=== PATIENT | male | born 1950 | race Caucasian/White ===

== ENCOUNTER 2019-07-05 15:14 | Emergency (ER) | payer OTHER ==
[~2019-07-05] VITALS: Ht 170.2 cm; Wt 104.3 kg
[~2019-07-05 15:14] MED LIST: ASPI81CH; ATOR80 PO; BUSP5 PO; CLOP75 PO; DIVA500EC; LISI5 PO; PARO30 PO; POWDERLAX238 GM PO; SIMV10; Vitamin D2000 UNIT PO; ZOLP10 PO
[2019-07-05 15:46] LABS: BASOPHILS ABSOLUTE AUTO 0.04 K/mm3 (0.00-0.23); BASOPHILS PERCENT AUTO 0 % (0-2); EOSINOPHILS ABSOLUTE AUTO 0.06 K/mm3 (0.00-0.68); EOSINOPHILS PERCENT AUTO 1 % (0-6); Hemoglobin 16.5 g/dL (13.5-17.5); IMMATURE GRAN ABSOLUTE AUTO 0.05 K/mm3 (0.00-0.10); IMMATURE GRAN PERCENT AUTO 0 % (0-1); LYMPHOCYTES ABSOLUTE AUTO 0.87 K/mm3 (0.84-5.20); LYMPHOCYTES PERCENT AUTO 8 % (21-46); MONOCYTES ABSOLUTE AUTO 0.65 K/mm3 (0.16-1.47); MONOCYTES PERCENT AUTO 6 % (4-13); Mean Corpuscular HGB 29.8 pg (26.0-34.0); Mean Corpuscular HGB Conc 32.4 g/dL (31.5-36.5); Mean Corpuscular Volume 92 fL (80-100); NEUTROPHILS ABSOLUTE AUTO 9.97 K/mm3 (1.96-9.15); NEUTROPHILS PERCENT AUTO 86 % (41-73); Platelet Count 255 K/mm3 (150-400); RDW Standard Deviation 44.4 fL (35.1-46.3); Red Blood Cell Count 5.53 M/mm3 (4.30-5.90); White Blood Cell Count 11.64 K/mm3 (4.00-11.30)
[2019-07-05 16:05] LABS: Alanine Aminotransfer (ALT/SGP 25 U/L (12-78); Albumin, Blood 3.9 g/dL (3.4-5.0); Albumin/Globulin Ratio 1.1 (0.8-1.8); Alk Phos 167 U/L (50-136); Anion Gap 7 mmol/L (6-16); Aspartate Aminotrans (AST/SGOT 19 U/L (12-37); Bilirubin, Total 0.7 mg/dL (0.1-1.0); Blood Urea Nitrogen 15 mg/dL (8-24); Bun/Creatinine Ratio 18.8 (12.0-20.0); CO2, Blood 25 mmol/L (21-32); Calcium, Blood 8.9 mg/dL (8.5-10.1); Chloride, Blood 108 mmol/L (98-108); Globulin, Blood 3.6 g/dL (2.2-4.0); Glomerular Filtration Rate >60 (60-); Glucose, Blood 114 mg/dL (70-99); Sodium, Blood 140 mmol/L (136-145); Total Protein, Blood 7.5 g/dL (6.4-8.2); Troponin I <0.015 ng/mL (0.000-0.040)
[2019-07-05] MEDS ORDERED: PEPCID40 MG PO (17:45)
== END 2019-07-05 18:00 | disposition home or self-care (01) ==
LOC: ER 15:14
PROVIDERS: Physician Assistant
DX: R07.9 Chest pain, unspecified (principal); I10 Essential (primary) hypertension; F32.9 Major depressive disorder, single episode, unspecified; Z87.891 Personal history of nicotine dependence
CPT/HCPCS: 36415; 71046; 76705; 80053; 84484; 85025; 93005; 93010; 96374; 96375; 99285-25; J1170; J2405

== ENCOUNTER 2019-07-05 23:10 | Inpatient (IN) | payer OTHER, MEDICARE ==
[~2019-07-05] VITALS: Ht 170.2 cm; Wt 105.4 kg
[~2019-07-05 23:10] MED LIST changes: +ATOR20 PO; -ATOR80 PO; -LISI5 PO; +PEPCID40 MG PO; +Prinivil10 MG PO; -ZOLP10 PO; +ZOLP5 PO
[2019-07-06 00:44] LABS: BASOPHILS ABSOLUTE AUTO 0.03 K/mm3 (0.00-0.23); BASOPHILS PERCENT AUTO 0 % (0-2); EOSINOPHILS ABSOLUTE AUTO 0.03 K/mm3 (0.00-0.68); EOSINOPHILS PERCENT AUTO 0 % (0-6); Hemoglobin 15.4 g/dL (13.5-17.5); IMMATURE GRAN ABSOLUTE AUTO 0.11 K/mm3 (0.00-0.10); IMMATURE GRAN PERCENT AUTO 1 % (0-1); LYMPHOCYTES ABSOLUTE AUTO 0.76 K/mm3 (0.84-5.20); LYMPHOCYTES PERCENT AUTO 4 % (21-46); MONOCYTES PERCENT AUTO 5 % (4-13); Mean Corpuscular HGB Conc 32.1 g/dL (31.5-36.5); Mean Corpuscular Volume 93 fL (80-100); Mean Platelet Volume 10.3 fL (9.1-12.4); NEUTROPHILS ABSOLUTE AUTO 18.21 K/mm3 (1.96-9.15); NEUTROPHILS PERCENT AUTO 90 % (41-73); Platelet Count 294 K/mm3 (150-400); RDW Coefficient Variation 13.2 % (11.7-14.2); RDW Standard Deviation 45.5 fL (35.1-46.3); Red Blood Cell Count 5.14 M/mm3 (4.30-5.90); White Blood Cell Count 20.24 K/mm3 (4.00-11.30)
[2019-07-06 00:52] LABS: Alanine Aminotransfer (ALT/SGP 21 U/L (12-78); Albumin, Blood 3.4 g/dL (3.4-5.0); Alk Phos 164 U/L (50-136); Anion Gap 7 mmol/L (6-16); Aspartate Aminotrans (AST/SGOT 13 U/L (12-37); Blood Urea Nitrogen 16 mg/dL (8-24); Bun/Creatinine Ratio 17.4 (12.0-20.0); CO2, Blood 27 mmol/L (21-32); Calcium, Blood 8.7 mg/dL (8.5-10.1); Chloride, Blood 107 mmol/L (98-108); Creatinine, Blood 0.92 mg/dL (0.60-1.20); Globulin, Blood 3.4 g/dL (2.2-4.0); Glomerular Filtration Rate >60 (60-); Glucose, Blood 119 mg/dL (70-99); Potassium, Blood 3.9 mmol/L (3.5-5.5); Sodium, Blood 141 mmol/L (136-145); Total Protein, Blood 6.8 g/dL (6.4-8.2); Troponin I <0.015 ng/mL (0.000-0.040)
[2019-07-06 02:08] LABS: CHOL/HDL RATIO 2.7; Cholesterol 111 mg/dL (50-200); HDL Cholesterol 41 mg/dL (>39); LDL/HDL RATIO 1.4; Low Density Lipoprotein Chol 57 mg/dL (0-110); Triglycerides 66 mg/dL (30-160); Very Low Density Lipoprot Chol 13 mg/dL (6-32)
--- NOTE | 2019-07-06 03:00 | NUR ---
0300 Patient arrived to the floor. Admission started. Dr Cortes called and ordered STAt CT-A with contrast. Patient complaining of pain 8/10 in his abdomen. BP is elevated at 168/79. Patient states he is nauseated. Gave Zofran, hydralizine and Fentanyl per emar. took patient to CT2 for procedure. 0402: returned from CT to room. telemetry placed. LR infusing per emar. Admission Assessments completed. 0530: Checked in with Dr Hernandez to make sure she had gotten imaging results. 0700: reported off to GRAY Bird
[2019-07-06 04:47] LABS: International Normalized Ratio 1.04; Prothrombin Time Results 11.1 Sec (9.7-11.5)
[2019-07-06 06:46] LABS: Hematocrit 44.6 % (37.0-53.0); Hemoglobin 14.3 g/dL (13.5-17.5)
[2019-07-06 12:46] LABS: Hematocrit 44.3 % (37.0-53.0); Hemoglobin 14.3 g/dL (13.5-17.5)
[2019-07-06 16:35] LABS: Hematocrit 42.4 % (37.0-53.0); Hemoglobin 13.5 g/dL (13.5-17.5)
--- NOTE | 2019-07-06 17:42 | NUR ---
PATIENT IS ALERT AND ORIENTED AND COOPERATIVE WITH CARE. NO REPORTS OF NAUSEA TODAY. LR RUNNING AT 75 ML/HR. A NEW IV WAS PLACED IN HIS RIGHT ARM. PATIENT COMPLAINS OF ABDOMINAL PAIN, TREATED PER EMAR. PATIENT HAS BEEN NPO EXCEPT FOR ICE CHIPS AND MEDS. CONSULT FOR DR. JORGE WAS PLACED THIS MORNING AND DR. JORGE SAW THE PATIENT THIS AFTERNOON. WILL CONTINUE TO MONITOR
[2019-07-06 20:32] LABS: Hematocrit 40.6 % (37.0-53.0)
[2019-07-07 00:24] LABS: Hematocrit 38.9 % (37.0-53.0); Hemoglobin 12.5 g/dL (13.5-17.5)
--- NOTE | 2019-07-07 04:38 | NUR ---
end of shift: patient had increasing pain with "burning sensations" per patient. Spoke to Malia Douglas NP about pain levels, received new order per emar
[2019-07-07 05:18] LABS: Hematocrit 39.5 % (37.0-53.0); Hemoglobin 12.7 g/dL (13.5-17.5)
[2019-07-07 05:39] LABS: Albumin, Blood 3.3 g/dL (3.4-5.0); Anion Gap 5 mmol/L (6-16); Blood Urea Nitrogen 21 mg/dL (8-24); Bun/Creatinine Ratio 25.2 (12.0-20.0); CO2, Blood 28 mmol/L (21-32); Calcium, Blood 8.7 mg/dL (8.5-10.1); Chloride, Blood 105 mmol/L (98-108); Creatinine, Blood 0.83 mg/dL (0.60-1.20); Glomerular Filtration Rate >60 (60-); Glucose, Blood 81 mg/dL (70-99); Phosphorus, Blood 2.9 mg/dL (2.5-4.9); Potassium, Blood 4.1 mmol/L (3.5-5.5); Sodium, Blood 138 mmol/L (136-145)
--- NOTE | 2019-07-07 08:38 | NUR ---
patient had a difficult night. his pain levels were higher and the character of his pain became more a burning pain per patient report. I spoke to the oncall hospitalist and recieved orders in increase the dose of his fentanyl to 100 mcg. but pt dasaturated to low 80s after receiving it. he was placed on O2 at 4L to maintain above 90% amd then backed down to 3L where hs remains.. 0540: spoke to Dr Fleming regarding patient elevated bp; hsi dose of lisinipril was increased to 10 mg and 1st dose given with his 6am meds.
[2019-07-07 08:42] LABS: Hematocrit 39.1 % (37.0-53.0); Hemoglobin 12.4 g/dL (13.5-17.5)
--- NOTE | 2019-07-07 18:56 | NUR ---
PT SEEN BY DR HERCULES TODAY AND DIET CHANGED FROM NPO TO LESLI. PT REQUESTED A REGULAR DIET AND RECIEVED SUCH FOR DINNER. PT TO BE MADE NPO AFTER BREAKFAST TOMORROW FOR AN ANGIO. PT DID REPORT ABD PAIN X1 AT 8/10 AND WAS MEDICATED WITH 50MCG OF IV FENTANYL WITH GOOD EFFECT. PT DENIES DIZZINESS AND BEING LIGHTHEADED, AMBULATES IN ROOM. NO ACUTE CHANGES NOTED THIS SHIFT, WILL CONTINUE TO MONITOR AND REPORT TO ONCOMING RN
[2019-07-08 05:15] LABS: BASOPHILS ABSOLUTE AUTO 0.05 K/mm3 (0.00-0.23); BASOPHILS PERCENT AUTO 0 % (0-2); EOSINOPHILS ABSOLUTE AUTO 0.17 K/mm3 (0.00-0.68); EOSINOPHILS PERCENT AUTO 1 % (0-6); IMMATURE GRAN ABSOLUTE AUTO 0.14 K/mm3 (0.00-0.10); IMMATURE GRAN PERCENT AUTO 1 % (0-1); LYMPHOCYTES ABSOLUTE AUTO 0.89 K/mm3 (0.84-5.20); LYMPHOCYTES PERCENT AUTO 4 % (21-46); MONOCYTES ABSOLUTE AUTO 1.56 K/mm3 (0.16-1.47); MONOCYTES PERCENT AUTO 7 % (4-13); Mean Corpuscular HGB 30.2 pg (26.0-34.0); Mean Corpuscular HGB Conc 31.6 g/dL (31.5-36.5); Mean Platelet Volume 10.9 fL (9.1-12.4); NEUTROPHILS ABSOLUTE AUTO 20.21 K/mm3 (1.96-9.15); NEUTROPHILS PERCENT AUTO 88 % (41-73); Platelet Count 236 K/mm3 (150-400); RDW Coefficient Variation 13.3 % (11.7-14.2); RDW Standard Deviation 47.7 fL (35.1-46.3); Red Blood Cell Count 3.97 M/mm3 (4.30-5.90); White Blood Cell Count 23.02 K/mm3 (4.00-11.30)
[2019-07-08 05:22] LABS: Mean Corpuscular Volume 96 fL (80-100)
[2019-07-08 05:36] LABS: Anion Gap 4 mmol/L (6-16); Blood Urea Nitrogen 14 mg/dL (8-24); Bun/Creatinine Ratio 16.5 (12.0-20.0); CO2, Blood 30 mmol/L (21-32); Calcium, Blood 8.7 mg/dL (8.5-10.1); Chloride, Blood 103 mmol/L (98-108); Creatinine, Blood 0.85 mg/dL (0.60-1.20); Glomerular Filtration Rate >60 (60-); Glucose, Blood 99 mg/dL (70-99); Potassium, Blood 3.8 mmol/L (3.5-5.5); Sodium, Blood 137 mmol/L (136-145)
--- NOTE | 2019-07-08 06:55 | NUR ---
SUMMARY: A/OX4, CALLS APPROPRIATELY AND PLESANT/COOPERATIVE W/CARE. HE'S A SBA OOB D/T SYNCOPE AT HOME. PT REPORTED EATING SOME DURING DAY SHIFT AND TOLERATING IT WELL BUT HAS SINCE HAD ABDO PAIN. PT WAS MEDICATED W/TYLENOL X2 DOSES AND IV FENTANLY PRN FOR TOLERABLE CONTROL. HE DENIES NAUSEA AND ALL OTHER S/S DISTRESS. PT REMAINS IN NSR AT 80'S-90'S BPM. AMBIEN RECIEVED PRN PER PT REQUEST AND HE SLEPT MOST OF NOCTE EXCEPT TO VOID. IVF REMAIN ON HOLD AND PT WILL BE NPO AFTER BREAKFAST FOR ANGIO BY . VSS/AFEBRILE, NO ACUTE CHANGES. WCTM AND REPORT TO DAY RN.
[2019-07-08 16:41] LABS: Source, Urine Clean Catch
[2019-07-08 16:45] LABS: Blood, Urine 1+ (Neg); Glucose Qualitative, Urine Neg (Neg); Ketones, Urine Neg (Neg); Leukocyte Esterase, Urine 1+ (Neg); Nitrite, Urine Neg (Neg); Protein, Urine 2+ (Neg); Urobilinogen, Urine 3+ (Normal)
[2019-07-08 17:00] LABS: Appearance, Urine Clear (Clear); Bilirubin, Urine 1+ (Neg); Color, Urine Amber (P-Yellow)
[2019-07-08 17:03] LABS: Bacteria Few /hpf; Squamous Epithelial Cells Rare /hpf (Few)
--- NOTE | 2019-07-09 04:24 | NUR ---
SHIFT SUMMARY- PT. PLEASANT AND COOPERATIVE WITH CARE. SCHEDULED FOR AN ANGIO TODAY WITH DR. HERCULES. PT. HAS BEEN NPO SINCE MN. MEDICATED FOR PAIN 2X PER PT. REQUEST WITH GOOD RELIEF. PT. SLEPT ON/OFF DURING THE NIGHT, NO APPARENT DISTRESS NOTED. DENIES ANY OTHER NEEDS AT THIS TIME. CALL LIGHT WITHIN REACH AND SIDE RAILS UP X2. WILL CONT TO MONITOR.
[2019-07-09 05:10] LABS: BASOPHILS ABSOLUTE AUTO 0.05 K/mm3 (0.00-0.23); BASOPHILS PERCENT AUTO 0 % (0-2); EOSINOPHILS ABSOLUTE AUTO 0.15 K/mm3 (0.00-0.68); EOSINOPHILS PERCENT AUTO 1 % (0-6); Hematocrit 34.5 % (37.0-53.0); Hemoglobin 11.1 g/dL (13.5-17.5); IMMATURE GRAN ABSOLUTE AUTO 0.17 K/mm3 (0.00-0.10); IMMATURE GRAN PERCENT AUTO 1 % (0-1); LYMPHOCYTES ABSOLUTE AUTO 0.67 K/mm3 (0.84-5.20); LYMPHOCYTES PERCENT AUTO 3 % (21-46); MONOCYTES ABSOLUTE AUTO 1.65 K/mm3 (0.16-1.47); MONOCYTES PERCENT AUTO 9 % (4-13); Mean Corpuscular HGB 30.2 pg (26.0-34.0); Mean Corpuscular HGB Conc 32.2 g/dL (31.5-36.5); Mean Corpuscular Volume 94 fL (80-100); Mean Platelet Volume 10.5 fL (9.1-12.4); NEUTROPHILS PERCENT AUTO 86 % (41-73); Platelet Count 229 K/mm3 (150-400); RDW Coefficient Variation 13.2 % (11.7-14.2); RDW Standard Deviation 45.9 fL (35.1-46.3); Red Blood Cell Count 3.68 M/mm3 (4.30-5.90); White Blood Cell Count 19.49 K/mm3 (4.00-11.30)
[2019-07-09 05:27] LABS: Anion Gap 7 mmol/L (6-16); Blood Urea Nitrogen 15 mg/dL (8-24); Bun/Creatinine Ratio 19.5 (12.0-20.0); CO2, Blood 28 mmol/L (21-32); Calcium, Blood 8.4 mg/dL (8.5-10.1); Chloride, Blood 103 mmol/L (98-108); Creatinine, Blood 0.77 mg/dL (0.60-1.20); Glomerular Filtration Rate >60 (60-); Glucose, Blood 101 mg/dL (70-99); Potassium, Blood 3.8 mmol/L (3.5-5.5); Sodium, Blood 138 mmol/L (136-145)
--- NOTE | 2019-07-09 09:10 | NUR ---
PT TO RECOVERY ROOM POST PROCEDURE. PT IS DROWSY, BUT ROUSABLE; ANSWERING QUESTIONS APPROPRIATELY. PT DENIES PAIN OR DISCOMFORT. MONITOR SR WITH PVC 90'S, B/P 125/62, AFEBRILE, SPO2 95% 2L NC. R GROIN SITE NO SWELLING/HEMATOMA, TEGADERM DRSG INTACT; RLE PULSES: 2+ X 2. PT'S AT BEDSIDE UPDATED.
--- NOTE | 2019-07-09 10:35 | NUR ---
ATTEMPTED TO WEAN O2, PT DESATURATED TO 88% ON RA, REMAINS ON 2L NC 93-95%.
--- NOTE | 2019-07-09 10:45 | NUR ---
REPORT TO GRAY BISWAS HCR.
--- NOTE | 2019-07-09 10:47 | NUR ---
RIGHT GROIN SITE SOFT NON-TENDER WITH NO HEMATOMA AND NO BLEEDING WITH INTACT DRESSING. PT DRINKING WATER. CALL LIGHT IN REACH.
--- NOTE | 2019-07-09 10:58 | NUR ---
Pt received from Leno Hernadez RN, Pt sleeping off and on responds to questions. VSS HOB up 20%. Iv Hep lock left A/C # 18. SR 74 heart rate. Right groin access dry and intact no hematoma or bleeding noted. Drg opsite.
--- NOTE | 2019-07-09 11:48 | NUR ---
Pt up to bedside yosi well. Right groin dry and intact, no bleeding or hematoma noted. Pt off 02 with sats 90-95% Linen changed, pt denies pain. SR no ectopy. Pt drank juice, bannana, given.
--- NOTE | 2019-07-09 12:00 | NUR ---
Sbar to Marizol Medrano RN sbar given pt stable ready to transfer back to his room 311.
--- NOTE | 2019-07-09 12:10 | NUR ---
Pt transported via bed to room 311 with Anders Leach RN Tele box on. Pt stable see previous note on SBAR.
--- NOTE | 2019-07-09 18:29 | NUR ---
SHIFT SUMMARY PT ALERT AND ORIENTED THIS SHIFT. PT COOPERATIVE WITH CARE. PT TO APPLIANCE PARTS COUNTER CLERK FOR PROCEDURE THIS AM. PT RETURNED TO THE FLOOR AROUND NOON. PT DROWSY AFTER PROCEDURE. PT WOKE TO VERBAL STIMULI. INSERTION SITE REMAINS CLEAN WITH NO SIGNS OF HEMATOMA. PT'S IN THE ROOM THIS AM AND AGAIN THIS AFTERNOON. PT CURRENTLY SITTING ON BEDSIDE EATING DINNER.
[2019-07-10 05:35] LABS: BASOPHILS ABSOLUTE AUTO 0.06 K/mm3 (0.00-0.23); BASOPHILS PERCENT AUTO 0 % (0-2); EOSINOPHILS ABSOLUTE AUTO 0.25 K/mm3 (0.00-0.68); EOSINOPHILS PERCENT AUTO 2 % (0-6); Hematocrit 31.8 % (37.0-53.0); Hemoglobin 10.1 g/dL (13.5-17.5); IMMATURE GRAN ABSOLUTE AUTO 0.14 K/mm3 (0.00-0.10); IMMATURE GRAN PERCENT AUTO 1 % (0-1); LYMPHOCYTES ABSOLUTE AUTO 0.86 K/mm3 (0.84-5.20); LYMPHOCYTES PERCENT AUTO 6 % (21-46); MONOCYTES ABSOLUTE AUTO 1.59 K/mm3 (0.16-1.47); MONOCYTES PERCENT AUTO 11 % (4-13); Mean Corpuscular HGB Conc 31.8 g/dL (31.5-36.5); Mean Corpuscular Volume 94 fL (80-100); Mean Platelet Volume 10.5 fL (9.1-12.4); NEUTROPHILS ABSOLUTE AUTO 11.97 K/mm3 (1.96-9.15); NEUTROPHILS PERCENT AUTO 81 % (41-73); Platelet Count 213 K/mm3 (150-400); RDW Coefficient Variation 13.3 % (11.7-14.2); RDW Standard Deviation 46.1 fL (35.1-46.3); Red Blood Cell Count 3.37 M/mm3 (4.30-5.90); White Blood Cell Count 14.87 K/mm3 (4.00-11.30)
[2019-07-10 05:55] LABS: Alanine Aminotransfer (ALT/SGP 36 U/L (12-78); Albumin, Blood 2.1 g/dL (3.4-5.0); Albumin/Globulin Ratio 0.6 (0.8-1.8); Alk Phos 166 U/L (50-136); Anion Gap 5 mmol/L (6-16); Aspartate Aminotrans (AST/SGOT 46 U/L (12-37); Bilirubin, Total 1.4 mg/dL (0.1-1.0); Blood Urea Nitrogen 21 mg/dL (8-24); Bun/Creatinine Ratio 21.7 (12.0-20.0); CO2, Blood 29 mmol/L (21-32); Calcium, Blood 8.1 mg/dL (8.5-10.1); Chloride, Blood 106 mmol/L (98-108); Creatinine, Blood 0.97 mg/dL (0.60-1.20); Globulin, Blood 3.5 g/dL (2.2-4.0); Glomerular Filtration Rate >60 (60-); Glucose, Blood 119 mg/dL (70-99); Magnesium, Blood 2.2 mg/dL (1.6-2.4); Potassium, Blood 3.6 mmol/L (3.5-5.5); Sodium, Blood 140 mmol/L (136-145); Total Protein, Blood 5.6 g/dL (6.4-8.2)
--- NOTE | 2019-07-10 06:41 | NUR ---
SHIFT SUMMARY PT IS A 68 Y/O MALE, ADMITTED FOR ACUTE PANCREATITIS. HE HAD A JEWEL HOLE DRILLER PRECEDURE YESTERDAY TO FIX AN ABD BLEED IN HIS LIVER. SITE REMAINS CLEAN AND INTACT. PT SPIKED A SUDDEN FEVER LAST NIGHT, AT 102.1, THAT ZENAIDA TO 102.8 AFTER HE RECEIVED TYLENOL. AFTER CONSULTING HOSPITALIST DR DAMON, PT WAS GIVEN A SECOND DOSE OF TYLENOL, AND A SECOND SET OF BLOOD CULTURES WERE TAKEN. PT'S TEMPERATURE CAME DOWN TO 100.4 AFTER THE SECOND DOSE. THE PT HAD POSITIVE BLOOD CULTURES FROM THE FIRST SET TAKEN, WITH BRANCHING GRAM + COCCI. PER THE PHARMACIST, CESAR MERAZ, THE ZOSYN THAT THE PT IS CURRENTLY TAKING IS APPROXIMATELY 70% EFFECTIVE. THE HOSPITALIST DR MACIEL WAS INFORMED, NO FURTHER CHANGES IN ORDERS AT THIS TIME. ALL OTHER VITALS STABLE. PT IS ON TELE, WHICH SHOWED NSR IN THE 90S. NO COMPLAINTS OF PAIN, NAUSEA OR SOB. PT WAS ON 2L OF O2 VIA NC THROUGH THE NIGHT. NO OTHER ACUTE CHANGES IN PT CONDITION NOTED. WILL CONTINUE TO MONITOR AND TREAT PER EMAR UNTIL HAND OFF TO DAY SHIFT RN.
--- NOTE | 2019-07-10 13:51 | NUR ---
WATER RESOURCE PROJECT MANAGER NOTIFIED THIS NURSE OF PATIENT FEVER AT ABOUT 1330. THIS NURSE IN TO ASSESS PATIENT IMMEDIATELY. PT FEBRILE AT 1342 AT 103.0. MEDICATED PER EMAR AND ICE PACKS IN ARMPITS. PT AXO TO SELF, PLACE AND FOLLOWING DIRECTIONS THOUGH SLOW TO RESPOND. PT COMPLAINS OF LOWER ABDOMINAL PAIN 6/10 AND CHRONIC PACK PAIN. LR RUNNING PER EMAR AT 75 ML/HR. THIS NURSE TO NOTIFY DR. CHEN AND PTS SPOUSE AFTER REASSESSMENT.
--- NOTE | 2019-07-10 14:01 | NUR ---
DR CHEN NOTIFIED ABOUT CHANGE IN PATIENT STATUS AND TEMPERATURE AT 1355, MEW ORDERS INITIATED. . PT'S SPOUSE CALLED AT 1401 TO UPDATE. NO ANSWER. NO MESSAGE LEFT. WILL ATTEMPT AGAIN LATER.
[2019-07-10 14:33] LABS: BASOPHILS ABSOLUTE AUTO 0.05 K/mm3 (0.00-0.23); BASOPHILS PERCENT AUTO 0 % (0-2); EOSINOPHILS ABSOLUTE AUTO 0.18 K/mm3 (0.00-0.68); EOSINOPHILS PERCENT AUTO 1 % (0-6); Hematocrit 34.9 % (37.0-53.0); Hemoglobin 11.1 g/dL (13.5-17.5); IMMATURE GRAN ABSOLUTE AUTO 0.18 K/mm3 (0.00-0.10); IMMATURE GRAN PERCENT AUTO 1 % (0-1); LYMPHOCYTES ABSOLUTE AUTO 0.43 K/mm3 (0.84-5.20); LYMPHOCYTES PERCENT AUTO 3 % (21-46); MONOCYTES ABSOLUTE AUTO 1.49 K/mm3 (0.16-1.47); MONOCYTES PERCENT AUTO 10 % (4-13); Mean Corpuscular HGB 29.9 pg (26.0-34.0); Mean Corpuscular HGB Conc 31.8 g/dL (31.5-36.5); Mean Corpuscular Volume 94 fL (80-100); Mean Platelet Volume 10.3 fL (9.1-12.4); NEUTROPHILS ABSOLUTE AUTO 13.19 K/mm3 (1.96-9.15); NEUTROPHILS PERCENT AUTO 85 % (41-73); Platelet Count 244 K/mm3 (150-400); RDW Coefficient Variation 13.4 % (11.7-14.2); RDW Standard Deviation 46.2 fL (35.1-46.3); Red Blood Cell Count 3.71 M/mm3 (4.30-5.90); White Blood Cell Count 15.52 K/mm3 (4.00-11.30)
--- NOTE | 2019-07-10 18:48 | NUR ---
SHIFT SUMMARY PT AXO TO SELF, PLACE AND FAMILY THOUGH MAKES OFF THE WALL STATEMENTS AT TIMES. SEE NOTE ABOUT FEVER AT ABOUT 1401. AT 1505 PT TEMP WAS 100.4. PT ALSO IS MORE ALERT AT END OF SHIFT THAN WHEN HE HAD THE FEVER. OTHER VSS AT THIS TIME. 96% ON RA. NEW IV IN LAC INFUSING PER EMAR. BED IN LOW POSITION, CALL LIGHT WITHIN REACH AND BED ALARM ON. CT COMPLETED THIS SHIFT, SEE IMAGING.
[2019-07-11 05:12] LABS: BASOPHILS ABSOLUTE AUTO 0.05 K/mm3 (0.00-0.23); BASOPHILS PERCENT AUTO 0 % (0-2); EOSINOPHILS PERCENT AUTO 1 % (0-6); Hematocrit 34.2 % (37.0-53.0); Hemoglobin 10.8 g/dL (13.5-17.5); IMMATURE GRAN ABSOLUTE AUTO 0.25 K/mm3 (0.00-0.10); IMMATURE GRAN PERCENT AUTO 2 % (0-1); LYMPHOCYTES ABSOLUTE AUTO 0.72 K/mm3 (0.84-5.20); LYMPHOCYTES PERCENT AUTO 4 % (21-46); MONOCYTES ABSOLUTE AUTO 1.67 K/mm3 (0.16-1.47); MONOCYTES PERCENT AUTO 10 % (4-13); Mean Corpuscular HGB 29.3 pg (26.0-34.0); Mean Corpuscular HGB Conc 31.6 g/dL (31.5-36.5); Mean Corpuscular Volume 93 fL (80-100); Mean Platelet Volume 10.1 fL (9.1-12.4); NEUTROPHILS PERCENT AUTO 83 % (41-73); Platelet Count 226 K/mm3 (150-400); RDW Coefficient Variation 13.2 % (11.7-14.2); RDW Standard Deviation 46.1 fL (35.1-46.3); Red Blood Cell Count 3.68 M/mm3 (4.30-5.90); White Blood Cell Count 16.49 K/mm3 (4.00-11.30)
[2019-07-11 05:29] LABS: Anion Gap 5 mmol/L (6-16); Blood Urea Nitrogen 12 mg/dL (8-24); Bun/Creatinine Ratio 14.5 (12.0-20.0); CO2, Blood 28 mmol/L (21-32); Calcium, Blood 8.5 mg/dL (8.5-10.1); Chloride, Blood 106 mmol/L (98-108); Creatinine, Blood 0.83 mg/dL (0.60-1.20); Glomerular Filtration Rate >60 (60-); Glucose, Blood 115 mg/dL (70-99); Magnesium, Blood 2.2 mg/dL (1.6-2.4); Potassium, Blood 3.9 mmol/L (3.5-5.5); Sodium, Blood 139 mmol/L (136-145)
--- NOTE | 2019-07-11 07:40 | NUR ---
SHIFT SUMMARY PT IS A 68 Y/O MALE, ADMITTED WITH ACUTE PANCREATITIS. HE IS A&O X 3 AT BASELINE, THOUGH IS INCREASINGLY CONFUSED WHEN HIS TEMPERATURE IS ELEVATED. PT DID SPIKE A FEVER DURING THE NIGHT AT 101.5, WHICH CAME DOWN TO 98.6 WITH PRN TYLENOL. PT'S BP SLIGHTLY ELEVATED IN THE 160S SYSTOLICALLY. ALL OTHER VITALS STABLE. PT DENIED ANY COMPLAINTS OF PAIN, NAUSEA OR SOB. HE RECEIVED LR @ 75 ML/HR THROUGH THE NIGHT. NO OTHER ACUTE CHANGES IN PT CONDITION NOTED. REPROT GIVEN TO ONCOMING RN.
--- NOTE | 2019-07-11 18:40 | NUR ---
THE PATIENT HAD AN UNEVENTFUL DAY AND IS PLEASANT AND COOPERATIVE WITH THE STAFF. HE CONTINUES ON IV FLUIDS AND IV ABX WITHOUT S/SX OF ADVERSE REACTIONS NOTED OR REPORTED. BP ELEVATED THIS MORNING HOWEVER ALL VITALS WNL THIS AFTERNOON. PATIENT AMBULATING WELL WITH SBA. HE CALLS FOR STAFF ASSIST APPROPRIATELY. WILL CONTINUE TO MONITOR AND PROVIDE CARE NEEDED.
[2019-07-12 05:44] LABS: BASOPHILS ABSOLUTE AUTO 0.09 K/mm3 (0.00-0.23); BASOPHILS PERCENT AUTO 1 % (0-2); EOSINOPHILS PERCENT AUTO 1 % (0-6); Hematocrit 32.8 % (37.0-53.0); Hemoglobin 10.5 g/dL (13.5-17.5); IMMATURE GRAN ABSOLUTE AUTO 0.51 K/mm3 (0.00-0.10); IMMATURE GRAN PERCENT AUTO 3 % (0-1); LYMPHOCYTES ABSOLUTE AUTO 0.74 K/mm3 (0.84-5.20); LYMPHOCYTES PERCENT AUTO 4 % (21-46); MONOCYTES ABSOLUTE AUTO 1.87 K/mm3 (0.16-1.47); MONOCYTES PERCENT AUTO 10 % (4-13); Mean Corpuscular HGB 29.5 pg (26.0-34.0); Mean Corpuscular Volume 92 fL (80-100); Mean Platelet Volume 10.3 fL (9.1-12.4); NEUTROPHILS ABSOLUTE AUTO 15.65 K/mm3 (1.96-9.15); NEUTROPHILS PERCENT AUTO 82 % (41-73); Platelet Count 271 K/mm3 (150-400); RDW Coefficient Variation 13.2 % (11.7-14.2); RDW Standard Deviation 44.8 fL (35.1-46.3); Red Blood Cell Count 3.56 M/mm3 (4.30-5.90); White Blood Cell Count 19.06 K/mm3 (4.00-11.30)
[2019-07-12 06:09] LABS: Anion Gap 7 mmol/L (6-16); Blood Urea Nitrogen 11 mg/dL (8-24); Bun/Creatinine Ratio 13.2 (12.0-20.0); CO2, Blood 26 mmol/L (21-32); Calcium, Blood 8.5 mg/dL (8.5-10.1); Chloride, Blood 104 mmol/L (98-108); Creatinine, Blood 0.84 mg/dL (0.60-1.20); Glomerular Filtration Rate >60 (60-); Glucose, Blood 95 mg/dL (70-99); Potassium, Blood 3.8 mmol/L (3.5-5.5); Sodium, Blood 137 mmol/L (136-145)
--- NOTE | 2019-07-12 07:48 | NUR ---
SHIFT SUMMARY PATIENT ALERT AND ORIENTED. HAD NO COMPLAINTS OF PAIN. BOTH IVS PATENT AND INFUSING. OPSITE DRESSING CLEAN, DRY, AND INTACT. BED IN LOWEST POSITION WITH WHEELS LOCKED. CALL LIGHT WITHIN REACH. REPORT GIVEN TO ONCOMING RN.
[2019-07-12] MEDS ORDERED: CREON DR 12,001 EACH PO (12:59)
--- NOTE | 2019-07-12 13:44 | NUR ---
DISCHARGE INSTRUCTIONS GIVEN TO THE PATIENT. EDUCATIONAL MATERIAL PROVIDED REGARDING PANCREATITS. ALL QUESTIONS ANSWERED. IV's x 2 REMOVED. PATIENT IN HIS ROOM WAITING FOR HIS TO RETURN TO TAKE HIM HOME.
--- NOTE | 2019-07-12 14:03 | NUR ---
PATIENT DISCHARGE HOME AT 1403.
== END 2019-07-12 14:03 | disposition home or self-care (01) | DRG 252 ==
LOC: ER 23:10 → MEDS 07-06 02:44
PROVIDERS: Internal Medicine; Physician Assistant; ADMIT Family Medicine
PROC: 04LY3DZ Occlusion of Lower Artery with Intraluminal Device, Percutaneous Approach (ICD-10-PCS; principal; 2019-07-09)
DX: I72.8 Aneurysm of other specified arteries (principal); K66.1 Hemoperitoneum; R65.11 Systemic inflammatory response syndrome (SIRS) of non-infectious origin with acute organ dysfunction; K85.90 Acute pancreatitis without necrosis or infection, unspecified; J96.21 Acute and chronic respiratory failure with hypoxia; K65.9 Peritonitis, unspecified; J98.11 Atelectasis; D46.9 Myelodysplastic syndrome, unspecified; D63.8 Anemia in other chronic diseases classified elsewhere; I10 Essential (primary) hypertension; I25.10 Atherosclerotic heart disease of native coronary artery without angina pectoris; N40.0 Benign prostatic hyperplasia without lower urinary tract symptoms; F43.10 Post-traumatic stress disorder, unspecified; Z66 Do not resuscitate; Z95.5 Presence of coronary angioplasty implant and graft; Z87.891 Personal history of nicotine dependence; Z79.82 Long term (current) use of aspirin
CPT/HCPCS: 36245; 36246; 36247; 36415; 37244; 71045; 71275; 74174; 74176; 75726; 75774; 80048; 80053; 80061; 80069; 81001; 83605; 83690; 83735; 84145; 84484; 85014; 85018; 85025; 85610; 85730; 86850; 86900; 86901; 87040; 87076; 87077; 87086; 87186; 93005; 93010; 93306; 97110; 97116; 97162; 97165; 97530; 99152; 99153; 99285-25; A9270; A9270-GY; C1760; C1769; C1887; C1894; C9113; J0360; J1644; J1885; J2250; J2405; J2543; J3010; J7030; J7050; J7120; Q9967

== ENCOUNTER 2019-09-08 14:21 | Emergency (ER) | payer OTHER ==
[~2019-09-08] VITALS: Ht 177.8 cm; Wt 104.3 kg
[~2019-09-08 14:21] MED LIST changes: +CREON DR 12,001 EACH PO
[2019-09-08] MEDS ORDERED: PRED10 PO (14:56)
== END 2019-09-08 15:11 | disposition home or self-care (01) ==
LOC: ER 14:21
DX: L30.9 Dermatitis, unspecified (principal); I10 Essential (primary) hypertension; F43.10 Post-traumatic stress disorder, unspecified; Z91.013 Allergy to seafood; Z88.8 Allergy status to other drugs, medicaments and biological substances; Z79.899 Other long term (current) drug therapy; Z87.891 Personal history of nicotine dependence
CPT/HCPCS: 99282

== ENCOUNTER 2020-02-14 14:03 | Emergency (ER) | payer OTHER ==
[~2020-02-14] VITALS: Ht 177.8 cm; Wt 105.7 kg
[~2020-02-14 14:03] MED LIST changes: +PRED10 PO
[2020-02-14 14:49] LABS: BASOPHILS ABSOLUTE AUTO 0.04 K/mm3 (0.00-0.23); BASOPHILS PERCENT AUTO 1 % (0-2); EOSINOPHILS ABSOLUTE AUTO 0.21 K/mm3 (0.00-0.68); EOSINOPHILS PERCENT AUTO 3 % (0-6); Hematocrit 46.2 % (37.0-53.0); Hemoglobin 14.7 g/dL (13.5-17.5); IMMATURE GRAN ABSOLUTE AUTO 0.06 K/mm3 (0.00-0.10); IMMATURE GRAN PERCENT AUTO 1 % (0-1); LYMPHOCYTES ABSOLUTE AUTO 1.19 K/mm3 (0.84-5.20); LYMPHOCYTES PERCENT AUTO 15 % (21-46); MONOCYTES ABSOLUTE AUTO 0.68 K/mm3 (0.16-1.47); MONOCYTES PERCENT AUTO 8 % (4-13); Mean Corpuscular HGB 29.4 pg (26.0-34.0); Mean Corpuscular HGB Conc 31.8 g/dL (31.5-36.5); Mean Corpuscular Volume 92 fL (80-100); Mean Platelet Volume 10.1 fL (9.1-12.4); NEUTROPHILS ABSOLUTE AUTO 6.03 K/mm3 (1.96-9.15); NEUTROPHILS PERCENT AUTO 73 % (41-73); Platelet Count 222 K/mm3 (150-400); RDW Coefficient Variation 13.2 % (11.7-14.2); RDW Standard Deviation 44.6 fL (35.1-46.3); White Blood Cell Count 8.21 K/mm3 (4.00-11.30)
[2020-02-14 15:00] LABS: Alanine Aminotransfer (ALT/SGP 25 U/L (12-78); Albumin, Blood 3.4 g/dL (3.4-5.0); Alk Phos 149 U/L (50-136); Anion Gap 4 mmol/L (6-16); Aspartate Aminotrans (AST/SGOT 26 U/L (12-37); Bilirubin, Total 0.5 mg/dL (0.1-1.0); Blood Urea Nitrogen 14 mg/dL (8-24); Bun/Creatinine Ratio 19.2 (12.0-20.0); CO2, Blood 27 mmol/L (21-32); Calcium, Blood 8.8 mg/dL (8.5-10.1); Chloride, Blood 111 mmol/L (98-108); Creatinine, Blood 0.73 mg/dL (0.60-1.20); Globulin, Blood 3.4 g/dL (2.2-4.0); Glomerular Filtration Rate >60 (60-); Glucose, Blood 93 mg/dL (70-99); Potassium, Blood 4.4 mmol/L (3.5-5.5); Sodium, Blood 142 mmol/L (136-145); Total Protein, Blood 6.8 g/dL (6.4-8.2)
[2020-02-14 16:22] LABS: Adenovirus Not Detected (NOT DETECT); Coronavirus 229E Not Detected (NOT DETECT); Coronavirus HKU1 Not Detected (NOT DETECT); Coronavirus NL63 Not Detected (NOT DETECT)
[2020-02-14 16:23] LABS: Bordetella pertussis Not Detected (NOT DETECT); Chlamydophila pneumoniae Not Detected (NOT DETECT); Coronavirus OC43 Not Detected (NOT DETECT); Human Metapneumovirus Not Detected (NOT DETECT); Human Rhinovirus/Enterovirus Not Detected (NOT DETECT); Influenza A/2009-H1 Not Detected (NOT DETECT); Influenza A/H1 Not Detected (NOT DETECT); Influenza A/H3 Not Detected (NOT DETECT); Influenza B Not Detected (NOT DETECT); Mycoplasma pneumoniae Not Detected (NOT DETECT); Parainfluenza Virus 1 Not Detected (NOT DETECT); Parainfluenza Virus 2 Not Detected (NOT DETECT); Parainfluenza Virus 3 Not Detected (NOT DETECT); Parainfluenza Virus 4 Not Detected (NOT DETECT); Respiratory Syncytial Virus Not Detected (NOT DETECT); SARS-Cov-2 (COVID-19), BioFire Not Detected (NOT DETECT)
== END 2020-02-14 19:24 | disposition home or self-care (01) ==
LOC: ER 14:03
PROVIDERS: Emergency Medicine
DX: R05 Cough (principal); R51.9 Headache, unspecified; R53.83 Other fatigue; I10 Essential (primary) hypertension; Z87.891 Personal history of nicotine dependence; Z79.899 Other long term (current) drug therapy; Z88.8 Allergy status to other drugs, medicaments and biological substances; Z91.013 Allergy to seafood; Z79.52 Long term (current) use of systemic steroids; Z20.828 Contact with and (suspected) exposure to other viral communicable diseases
CPT/HCPCS: 0202U; 36415; 71046; 80053; 83690; 85025; 99283-25

== ENCOUNTER 2020-07-03 13:08 | Emergency (ER) | payer OTHER ==
[~2020-07-03] VITALS: Ht 177.8 cm; Wt 100.7 kg
[2020-07-03] MEDS ORDERED: Lisinopril2.5 MG PO (13:24)
[2020-07-03] MEDS ORDERED: Aspir 8181 MG PO (13:26)
[2020-07-03 13:40] LABS: BASOPHILS ABSOLUTE AUTO 0.04 K/mm3 (0.00-0.23); BASOPHILS PERCENT AUTO 1 % (0-2); EOSINOPHILS ABSOLUTE AUTO 0.15 K/mm3 (0.00-0.68); EOSINOPHILS PERCENT AUTO 2 % (0-6); Hemoglobin 14.2 g/dL (13.5-17.5); IMMATURE GRAN ABSOLUTE AUTO 0.03 K/mm3 (0.00-0.10); IMMATURE GRAN PERCENT AUTO 0 % (0-1); LYMPHOCYTES ABSOLUTE AUTO 0.88 K/mm3 (0.84-5.20); LYMPHOCYTES PERCENT AUTO 12 % (21-46); MONOCYTES ABSOLUTE AUTO 0.54 K/mm3 (0.16-1.47); MONOCYTES PERCENT AUTO 7 % (4-13); Mean Corpuscular HGB 29.3 pg (26.0-34.0); Mean Corpuscular Volume 89 fL (80-100); Mean Platelet Volume 10.6 fL (9.1-12.4); NEUTROPHILS ABSOLUTE AUTO 5.71 K/mm3 (1.96-9.15); NEUTROPHILS PERCENT AUTO 78 % (41-73); Platelet Count 209 K/mm3 (150-400); RDW Coefficient Variation 13.3 % (11.7-14.2); RDW Standard Deviation 43.7 fL (35.1-46.3); Red Blood Cell Count 4.84 M/mm3 (4.30-5.90); White Blood Cell Count 7.35 K/mm3 (4.00-11.30)
[2020-07-03 13:59] LABS: Source, Urine Clean Catch
[2020-07-03 14:08] LABS: Appearance, Urine Clear (Clear); Bilirubin, Urine Neg (Neg); Blood, Urine 1+ (Neg); Color, Urine Yellow (P-Yellow); Glucose Qualitative, Urine Neg (Neg); Ketones, Urine Neg (Neg); Leukocyte Esterase, Urine Neg (Neg); Nitrite, Urine Neg (Neg); Protein, Urine Neg (Neg); Urobilinogen, Urine 2+ (Normal)
[2020-07-03 14:18] LABS: Alanine Aminotransfer (ALT/SGP 25 U/L (12-78); Albumin, Blood 3.5 g/dL (3.4-5.0); Albumin/Globulin Ratio 1.1 (0.8-1.8); Alk Phos 151 U/L (50-136); Anion Gap 5 mmol/L (6-16); Aspartate Aminotrans (AST/SGOT 18 U/L (12-37); Bilirubin, Total 0.8 mg/dL (0.1-1.0); Blood Urea Nitrogen 15 mg/dL (8-24); Bun/Creatinine Ratio 19.5 (12.0-20.0); CO2, Blood 29 mmol/L (21-32); Calcium, Blood 8.8 mg/dL (8.5-10.1); Chloride, Blood 109 mmol/L (98-108); Creatinine, Blood 0.77 mg/dL (0.60-1.20); Globulin, Blood 3.2 g/dL (2.2-4.0); Glomerular Filtration Rate >60 (60-); Glucose, Blood 130 mg/dL (70-99); Potassium, Blood 3.5 mmol/L (3.5-5.5); Sodium, Blood 143 mmol/L (136-145); Total Protein, Blood 6.7 g/dL (6.4-8.2)
[2020-07-03 14:21] LABS: Troponin I <0.015 ng/mL (0.000-0.040)
[2020-07-03 14:37] LABS: Bacteria Few /hpf; Mucus Light (0-Heavy); Red Blood Cells, Urine 0-2 /hpf (0-2); Squamous Epithelial Cells Few /hpf (Few); White Blood Cells, Urine 0-2 /hpf (0-5)
== END 2020-07-03 15:57 | disposition home or self-care (01) ==
LOC: ER 13:08
PROVIDERS: Physician Assistant
DX: R07.9 Chest pain, unspecified (principal); R06.02 Shortness of breath; I10 Essential (primary) hypertension; Z95.5 Presence of coronary angioplasty implant and graft; Z87.891 Personal history of nicotine dependence
CPT/HCPCS: 36415; 71046; 80053; 81001; 83690; 83880; 84484; 85025; 93005; 93010; 99285-25

== ENCOUNTER 2020-10-07 00:23 | Emergency (ER) | payer OTHER ==
[~2020-10-07] VITALS: Ht 180.3 cm; Wt 90.7 kg
[~2020-10-07 00:23] MED LIST changes: +Aspir 8181 MG PO; +Lisinopril2.5 MG PO
[2020-10-07] MEDS ORDERED: MELATONIN5 M1 PO (00:41)
[2020-10-07] MEDS ORDERED: IBU800 MG PO (00:42)
[2020-10-07 01:07] LABS: Source, Urine Clean Catch
[2020-10-07 01:09] LABS: BASOPHILS ABSOLUTE AUTO 0.05 K/mm3 (0.00-0.23); BASOPHILS PERCENT AUTO 1 % (0-2); EOSINOPHILS ABSOLUTE AUTO 0.27 K/mm3 (0.00-0.68); EOSINOPHILS PERCENT AUTO 3 % (0-6); Hematocrit 45.4 % (37.0-53.0); Hemoglobin 14.8 g/dL (13.5-17.5); IMMATURE GRAN ABSOLUTE AUTO 0.06 K/mm3 (0.00-0.10); IMMATURE GRAN PERCENT AUTO 1 % (0-1); LYMPHOCYTES ABSOLUTE AUTO 1.59 K/mm3 (0.84-5.20); LYMPHOCYTES PERCENT AUTO 18 % (21-46); MONOCYTES ABSOLUTE AUTO 0.92 K/mm3 (0.16-1.47); MONOCYTES PERCENT AUTO 10 % (4-13); Mean Corpuscular HGB Conc 32.6 g/dL (31.5-36.5); Mean Corpuscular Volume 89 fL (80-100); Mean Platelet Volume 10.2 fL (9.1-12.4); NEUTROPHILS ABSOLUTE AUTO 5.95 K/mm3 (1.96-9.15); NEUTROPHILS PERCENT AUTO 67 % (41-73); Platelet Count 246 K/mm3 (150-400); RDW Coefficient Variation 13.7 % (11.7-14.2); RDW Standard Deviation 44.6 fL (35.1-46.3); Red Blood Cell Count 5.11 M/mm3 (4.30-5.90); White Blood Cell Count 8.84 K/mm3 (4.00-11.30)
[2020-10-07 01:09] LABS: Bilirubin, Urine Neg (Neg); Blood, Urine 1+ (Neg); Glucose Qualitative, Urine Neg (Neg); Ketones, Urine Neg (Neg); Leukocyte Esterase, Urine 1+ (Neg); Nitrite, Urine Neg (Neg); Protein, Urine 1+ (Neg); Specific Gravity, Urine 1.025 (1.003-1.022); Urobilinogen, Urine 2+ (Normal)
[2020-10-07 01:13] LABS: Appearance, Urine Clear (Clear); Color, Urine Yellow (P-Yellow)
[2020-10-07 01:25] LABS: Amorphous Light (0-Heavy); Bacteria Not Seen /hpf; Mucus Light (0-Heavy); Red Blood Cells, Urine 0-2 /hpf (0-2); Squamous Epithelial Cells Not Seen /hpf (Few); White Blood Cells, Urine Rare /hpf (0-5)
[2020-10-07 01:27] LABS: Alanine Aminotransfer (ALT/SGP 23 U/L (12-78); Albumin, Blood 3.7 g/dL (3.4-5.0); Albumin/Globulin Ratio 1.1 (0.8-1.8); Alk Phos 153 U/L (50-136); Anion Gap 3 mmol/L (6-16); Aspartate Aminotrans (AST/SGOT 18 U/L (12-37); Bilirubin, Total 0.3 mg/dL (0.1-1.0); Blood Urea Nitrogen 19 mg/dL (8-24); Bun/Creatinine Ratio 20.1 (12.0-20.0); CO2, Blood 28 mmol/L (21-32); Calcium, Blood 8.7 mg/dL (8.5-10.1); Chloride, Blood 108 mmol/L (98-108); Creatinine, Blood 0.95 mg/dL (0.60-1.20); Globulin, Blood 3.3 g/dL (2.2-4.0); Glomerular Filtration Rate >60 (60-); Glucose, Blood 136 mg/dL (70-99); Potassium, Blood 3.8 mmol/L (3.5-5.5); Sodium, Blood 139 mmol/L (136-145)
== END 2020-10-07 01:52 | disposition home or self-care (01) ==
LOC: ER 00:23
PROVIDERS: Emergency Medicine
DX: R10.9 Unspecified abdominal pain (principal); I10 Essential (primary) hypertension; Z87.891 Personal history of nicotine dependence; Z91.013 Allergy to seafood; Z88.8 Allergy status to other drugs, medicaments and biological substances
CPT/HCPCS: 36415; 80053; 81001; 83690; 85025; 99284; A9270

== ENCOUNTER 2020-10-18 17:35 | Observation (INO) | payer OTHER ==
[~2020-10-18] VITALS: Ht 177.8 cm; Wt 110.2 kg
[~2020-10-18 17:35] MED LIST changes: +IBU800 MG PO; +MELATONIN5 M1 PO
[2020-10-18 18:14] LABS: BASOPHILS ABSOLUTE AUTO 0.04 K/mm3 (0.00-0.23); BASOPHILS PERCENT AUTO 0 % (0-2); EOSINOPHILS ABSOLUTE AUTO 0.22 K/mm3 (0.00-0.68); EOSINOPHILS PERCENT AUTO 2 % (0-6); Hematocrit 43.2 % (37.0-53.0); Hemoglobin 13.9 g/dL (13.5-17.5); IMMATURE GRAN ABSOLUTE AUTO 0.05 K/mm3 (0.00-0.10); IMMATURE GRAN PERCENT AUTO 1 % (0-1); LYMPHOCYTES PERCENT AUTO 13 % (21-46); MONOCYTES PERCENT AUTO 9 % (4-13); Mean Corpuscular HGB Conc 32.2 g/dL (31.5-36.5); Mean Corpuscular Volume 90 fL (80-100); Mean Platelet Volume 10.4 fL (9.1-12.4); NEUTROPHILS ABSOLUTE AUTO 6.74 K/mm3 (1.96-9.15); NEUTROPHILS PERCENT AUTO 75 % (41-73); Platelet Count 213 K/mm3 (150-400); RDW Coefficient Variation 13.8 % (11.7-14.2); RDW Standard Deviation 45.6 fL (35.1-46.3); White Blood Cell Count 9.05 K/mm3 (4.00-11.30)
[2020-10-18 18:34] LABS: Troponin I 0.018 ng/mL (0.000-0.040)
[2020-10-18 18:39] LABS: Alanine Aminotransfer (ALT/SGP 20 U/L (12-78); Albumin, Blood 3.3 g/dL (3.4-5.0); Alk Phos 150 U/L (50-136); Anion Gap 3 mmol/L (6-16); Aspartate Aminotrans (AST/SGOT 14 U/L (12-37); Bilirubin, Total 0.5 mg/dL (0.1-1.0); Blood Urea Nitrogen 14 mg/dL (8-24); Bun/Creatinine Ratio 12.6 (12.0-20.0); CO2, Blood 31 mmol/L (21-32); Calcium, Blood 8.8 mg/dL (8.5-10.1); Chloride, Blood 110 mmol/L (98-108); Creatinine, Blood 1.11 mg/dL (0.60-1.20); Globulin, Blood 3.3 g/dL (2.2-4.0); Glomerular Filtration Rate >60 (60-); Glucose, Blood 140 mg/dL (70-99); Potassium, Blood 3.9 mmol/L (3.5-5.5); Sodium, Blood 144 mmol/L (136-145); Total Protein, Blood 6.6 g/dL (6.4-8.2)
[2020-10-18 19:39] LABS: SARS-Cov-2 (COVID-19) PCR, MMC NEGATIVE (NEGATIVE)
[2020-10-18] MEDS ORDERED: Lisinopril2.5 MG PO (21:16)
[2020-10-18] MEDS ORDERED: ATOR20 PO (21:16)
[2020-10-18] MEDS ORDERED: IBUP800 PO (21:16)
[2020-10-18] MEDS ORDERED: PARO10 PO (21:17)
[2020-10-18] MEDS ORDERED: Aspirin EC81 MG PO (22:23)
[2020-10-18] MEDS ORDERED: ZOLP5 PO (22:26)
--- NOTE | 2020-10-18 22:57 | NUR ---
4333 PT ARRIVED TO ROOM FROM ER IN STABLE CONDITION. DENIES ANY DISCOMFORT AT THIS TIME. REQUESTED AND RECIEVED ONEL AND ERICKSON. DISCUSSED PT'S PROCEDURE FOR THE AM AND WHAT HIS DIET RESTRICTION WOULD BE BEFORE THE PROCEDURE. NO OTHER APPARENT SIGNS OF DISTRESS. PT DENIES NEED FOR ANYTHING ELSE AT THIS TIME. CALL LIGHT IS IN REACH. WAITING FOR TELE TO ARRIVE TO BE PLACED ON PT.
--- NOTE | 2020-10-18 23:25 | NUR ---
TELE IS SB AT 55 PER TELE TELEMARKETING FUNDRAISER.
--- NOTE | 2020-10-19 03:33 | NUR ---
0200 PT LYING IN BED, EYES CLOSED, APPEARS TO BE RESTING. BREATHING IS EVEN, UNLABORED. NO APPARENT SIGNS OF DISTRESS. CALL LIGHT IS IN REACH.
--- NOTE | 2020-10-19 03:34 | NUR ---
PT LYING IN BED, EYES CLOSED, APPEARS TO BE RESTING. BREATHING IS EVEN, UNLABORED. NO APPARENT SIGNS OF DISTRESS. CALL LIGHT IS IN REACH.
--- NOTE | 2020-10-19 03:34 | NUR ---
PT IS AAO X 4, ON RA. DENIED DISCOMFORT FOR THIS SHIFT. TELE SB.
--- NOTE | 2020-10-19 06:22 | NUR ---
PT LYING IN BED, EYES CLOSED, APPEARS TO BE RESTING. BREATHING IS EVEN, UNLABORED. NO APPARENT SIGNS OF DISTRESS. CALL LIGHT IS IN REACH. NO OTHER CHANGES THIS SHIFT.
--- NOTE | 2020-10-19 16:25 | NUR ---
SHIFT SUMMARY PATIENT DENIES PAIN, NAUSEA, AND SHORTNESS OF BREATH. PATIENT UP INDEPENDENT IN ROOM. PART ONE OF STRESS TEST COMPLETED TODAY. TELEMETRY SHOWING SB IN 50'S, PER BLEACH SUPERVISOR. AT BEDSIDE IN AFTERNOON. EATING AND DRINKING WELL. PLEASANT AND COOPERATIVE WITH CARE.
--- NOTE | 2020-10-20 03:43 | NUR ---
SHIFT SUMMARY PT HAD AN UNEVENTFUL NIGHT. REPORTING INTERMITTENT MILD CP THAT DOES NOT RADIATE AND EASES WITHOUT INTERVENTION. TELEMETRY READING SR IN THE 60'S. NO CAFFEINE THIS EVENING FOR SECOND PART OF STRESS TEST TODAY. SOME COMPLAINTS OF GOUT PAIN, ICE PACK PROVIDED PER PT REQUEST. PT AWAKE MUCH OF THE NIGHT WHICH HE REPORTS IS HIS BASELINE. VITAL SIGNS STABLE. NO ACUTE CHANGES THIS EVENING.
--- NOTE | 2020-10-20 04:19 | NUR ---
TOOK OVER CARE OF PT FROM ALINE ASHER. PT CURRENTLY LYING IN BED, EYES CLOSED, APPEARS TO BE RESTING. BREATHING IS EVEN, UNLABORED. NO APPARENT SIGNS OF DISTRESS. CALL LIGHT IS IN REACH.
--- NOTE | 2020-10-20 05:47 | NUR ---
PT LYING IN BED, AWAKE, WATCHING TV. NO APPARENT SIGNS OF DISTRESS. DENIES NEED FOR ANYTHING AT THIS TIME. CALL LIGHT IS IN REACH. NO OTHER CHANGES THIS SHIFT.
[2020-10-20] MEDS ORDERED: FAMO20 PO (15:39)
--- NOTE | 2020-10-20 16:14 | NUR ---
DISCHARGE DISCHARGE MEDICATIONS AND INSTRUCTIONS EXPLAINED TO PATIENT BY CLINICAL COORDINATER EMILIE. PATIENT STATED UNDERSTANDING. FOLLOW UP WITH PCP SCHEDULED. IV REMOVED WITHOUT ISSUE. BELONGIGNS WITH PATIENT. PATIENT TRANSFERED TO [facility] VIA WHEELCHAIR.
== END 2020-10-20 16:00 | disposition home or self-care (01) ==
LOC: ER 17:35 → MEDS 17:36
PROVIDERS: Emergency Medicine; ADMIT Internal Medicine
DX: I25.119 Atherosclerotic heart disease of native coronary artery with unspecified angina pectoris (principal); I10 Essential (primary) hypertension; N40.0 Benign prostatic hyperplasia without lower urinary tract symptoms; F32.9 Major depressive disorder, single episode, unspecified; F43.10 Post-traumatic stress disorder, unspecified; Z87.891 Personal history of nicotine dependence; Z66 Do not resuscitate; Z88.8 Allergy status to other drugs, medicaments and biological substances; Z91.013 Allergy to seafood; Z79.82 Long term (current) use of aspirin; Z79.899 Other long term (current) drug therapy; Z20.822 Contact with and (suspected) exposure to COVID-19
CPT/HCPCS: 36415; 71045; 78452; 80053; 83880; 84484; 85025; 93005; 93010; 93017; 93306; 96372; 99285-25; A9270; A9500; G0378; J1650; J2785; U0004

== ENCOUNTER 2021-01-04 08:44 | Inpatient (IN) | payer OTHER ==
[~2021-01-04] VITALS: Ht 180.3 cm; Wt 99.8 kg
[~2021-01-04 08:44] MED LIST changes: +Aspirin EC81 MG PO; +FAMO20 PO; +IBUP800 PO; +PARO10 PO
[2021-01-04 09:40] LABS: BASOPHILS ABSOLUTE AUTO 0.01 K/mm3 (0.00-0.23); BASOPHILS PERCENT AUTO 0 % (0-2); EOSINOPHILS PERCENT AUTO 0 % (0-6); Hematocrit 45.5 % (37.0-53.0); Hemoglobin 14.6 g/dL (13.5-17.5); Mean Corpuscular HGB 28.3 pg (26.0-34.0); Mean Corpuscular HGB Conc 32.1 g/dL (31.5-36.5); Mean Corpuscular Volume 88 fL (80-100); Mean Platelet Volume 12.1 fL (9.1-12.4); Platelet Count 116 K/mm3 (150-400); RDW Coefficient Variation 13.8 % (11.7-14.2); Red Blood Cell Count 5.15 M/mm3 (4.30-5.90); White Blood Cell Count 4.11 K/mm3 (4.00-11.30)
[2021-01-04 09:59] LABS: Alanine Aminotransfer (ALT/SGP 40 U/L (12-78); Albumin/Globulin Ratio 0.9 (0.8-1.8); Alk Phos 108 U/L (50-136); Anion Gap 7 mmol/L (6-16); Aspartate Aminotrans (AST/SGOT 78 U/L (12-37); Bilirubin, Total 0.5 mg/dL (0.1-1.0); Blood Urea Nitrogen 16 mg/dL (8-24); Bun/Creatinine Ratio 17.3 (12.0-20.0); CO2, Blood 28 mmol/L (21-32); Calcium, Blood 7.7 mg/dL (8.5-10.1); Chloride, Blood 103 mmol/L (98-108); Creatinine, Blood 0.93 mg/dL (0.60-1.20); Globulin, Blood 3.5 g/dL (2.2-4.0); Glomerular Filtration Rate >60 (60-); Glucose, Blood 104 mg/dL (70-99); Sodium, Blood 138 mmol/L (136-145); Total Protein, Blood 6.5 g/dL (6.4-8.2); Troponin I 0.046 ng/mL (0.000-0.040)
[2021-01-04 10:01] LABS: IMMATURE GRAN ABSOLUTE AUTO 0.05 K/mm3 (0.00-0.10); IMMATURE GRAN PERCENT AUTO 1 % (0-1); LYMPHOCYTES ABSOLUTE AUTO 0.53 K/mm3 (0.84-5.20); LYMPHOCYTES PERCENT AUTO 13 % (21-46); MONOCYTES ABSOLUTE AUTO 0.33 K/mm3 (0.16-1.47); MONOCYTES PERCENT AUTO 8 % (4-13); NEUTROPHILS ABSOLUTE AUTO 3.19 K/mm3 (1.96-9.15); NEUTROPHILS PERCENT AUTO 78 % (41-73)
[2021-01-04 10:27] LABS: Base Excess Venous 2.6 mmol/L; Bicarbonate Venous 25.8 mmol/L (24.0-30.0); PCO2 Venous 48.6 mmHg (38-42); pH Blood Venous 7.37 (7.34-7.37)
[2021-01-04 10:28] LABS: SARS-Cov-2 (COVID-19) PCR, MMC POSITIVE (NEGATIVE)
[2021-01-04 10:52] LABS: BASOPHILS PERCENT MAN 0 % (0-2); EOSINOPHILS PERCENT MAN 0 % (0-6); LYMPHOCYTES % ATYPICAL MANUAL 1 % (0-0); LYMPHOCYTES ABSOLUTE MAN 0.65 K/mm3 (0.84-5.20); LYMPHOCYTES PERCENT MAN 15 % (21-46); MONOCYTES ABSOLUTE MAN 0.24 K/mm3 (0.16-1.47); MONOCYTES PERCENT MAN 6 % (4-13); SEG NEUTROPHILS PERCENT MAN 78 % (41-73); TOTAL CELLS COUNTED 100
--- NOTE | 2021-01-04 16:06 | NUR ---
pt very aggitated and tactile sensitive. may need higher dosing on iv meds mann not tolerate roxinol family at bedside. comfort care initiated after expensive conversation all siblings are in agreement. family has been notified byt two of the sisters. they are basing their choice on the fact she has covid and her quility of life was a bed bound staus with chronic pain. chapandrey mederos was requested and came to pray with family.
[2021-01-04] MEDS ORDERED: ASPI81CH PO (18:21)
[2021-01-04] MEDS ORDERED: FAMO20 PO (18:22)
[2021-01-05 06:25] LABS: BASOPHILS PERCENT AUTO 0 % (0-2); EOSINOPHILS PERCENT AUTO 0 % (0-6); Hematocrit 47.1 % (37.0-53.0); Hemoglobin 15.2 g/dL (13.5-17.5); IMMATURE GRAN ABSOLUTE AUTO 0.06 K/mm3 (0.00-0.10); IMMATURE GRAN PERCENT AUTO 2 % (0-1); LYMPHOCYTES ABSOLUTE AUTO 0.31 K/mm3 (0.84-5.20); LYMPHOCYTES PERCENT AUTO 8 % (21-46); MONOCYTES ABSOLUTE AUTO 0.33 K/mm3 (0.16-1.47); MONOCYTES PERCENT AUTO 9 % (4-13); Mean Corpuscular HGB 28.9 pg (26.0-34.0); Mean Corpuscular HGB Conc 32.3 g/dL (31.5-36.5); Mean Corpuscular Volume 90 fL (80-100); Mean Platelet Volume 11.4 fL (9.1-12.4); NEUTROPHILS ABSOLUTE AUTO 2.98 K/mm3 (1.96-9.15); NEUTROPHILS PERCENT AUTO 81 % (41-73); Platelet Count 133 K/mm3 (150-400); RDW Coefficient Variation 13.5 % (11.7-14.2); RDW Standard Deviation 44.4 fL (35.1-46.3); Red Blood Cell Count 5.26 M/mm3 (4.30-5.90); White Blood Cell Count 3.68 K/mm3 (4.00-11.30)
--- NOTE | 2021-01-05 06:55 | NUR ---
SHIFT SUMMARY PATIENT ALERT AND ORIENTED X3. NO COMPLAINTS OF PAIN OR SHORTNESS OF BREATH. PT ON 9 LITERS O2 VIA OXYMIZER. NO ACUTE ISSUES NOTED OVERNIGHT. CALL LIGHT WITHIN REACH. REPORT GIVEN TO ONCOMING RN.
[2021-01-05 07:07] LABS: Anion Gap 5 mmol/L (6-16); Blood Urea Nitrogen 18 mg/dL (8-24); Bun/Creatinine Ratio 22.6 (12.0-20.0); CO2, Blood 30 mmol/L (21-32); Calcium, Blood 8.6 mg/dL (8.5-10.1); Chloride, Blood 104 mmol/L (98-108); Glomerular Filtration Rate >60 (60-); Glucose, Blood 145 mg/dL (70-99); Magnesium, Blood 2.6 mg/dL (1.6-2.4); Potassium, Blood 4.9 mmol/L (3.5-5.5); Sodium, Blood 139 mmol/L (136-145)
--- NOTE | 2021-01-05 15:53 | NUR ---
SHIFT SUMMARY PATIENT DENIES PAIN, NAUSEA, AND SHORTNESS OF BREATH AT REST. PATIENT REPORTS SOME SOB WITH ACTIVITY. PATIENT IS ON 9L HIGH FLOW. PATIENT TOLERATING WELL AND MAINTAINING SATS ABOVE 90%. NEW IV PLACED. PATIENT IS FORGETFUL, BUT ANSWERS ORIENTATION QUESTIONS APPROPRIATELY. PATIENT IS A STAND BY ASSIST. PATIENT IS EATING AND DRINKING WELL. PATIENT IS PLEASANT AND COOPERATIVE WITH CARE.
--- NOTE | 2021-01-06 05:21 | NUR ---
PROGRAM ASSISTANT SUMMARY PT A/O X4 WITH FORGETFULNESS. CONTINUES TO BE ON 9L VIA OXIMYZER SATTING IN THE IN THE LOW 90'S. DENIES PAIN, NAUSEA. NO ACUTE CHANGES. VITALS STABLE. AMBULATES WITH SBA TO THE BATHROOM. CALL LIGHT WITHIN REACH, BED ALARM ON, WILL CONTINUE TO MONITOR.
[2021-01-06 05:58] LABS: BASOPHILS ABSOLUTE AUTO 0.02 K/mm3 (0.00-0.23); BASOPHILS PERCENT AUTO 0 % (0-2); EOSINOPHILS PERCENT AUTO 0 % (0-6); Hematocrit 44.2 % (37.0-53.0); Hemoglobin 14.3 g/dL (13.5-17.5); IMMATURE GRAN ABSOLUTE AUTO 0.08 K/mm3 (0.00-0.10); IMMATURE GRAN PERCENT AUTO 1 % (0-1); LYMPHOCYTES ABSOLUTE AUTO 0.44 K/mm3 (0.84-5.20); LYMPHOCYTES PERCENT AUTO 4 % (21-46); MONOCYTES PERCENT AUTO 7 % (4-13); Mean Corpuscular HGB 28.7 pg (26.0-34.0); Mean Corpuscular HGB Conc 32.4 g/dL (31.5-36.5); Mean Corpuscular Volume 89 fL (80-100); Mean Platelet Volume 11.5 fL (9.1-12.4); NEUTROPHILS PERCENT AUTO 88 % (41-73); Platelet Count 175 K/mm3 (150-400); RDW Coefficient Variation 13.6 % (11.7-14.2); RDW Standard Deviation 44.1 fL (35.1-46.3); Red Blood Cell Count 4.98 M/mm3 (4.30-5.90); White Blood Cell Count 10.04 K/mm3 (4.00-11.30)
[2021-01-06 06:13] LABS: Anion Gap 5 mmol/L (6-16); Blood Urea Nitrogen 24 mg/dL (8-24); Bun/Creatinine Ratio 28.1 (12.0-20.0); CO2, Blood 30 mmol/L (21-32); Calcium, Blood 7.9 mg/dL (8.5-10.1); Chloride, Blood 105 mmol/L (98-108); Creatinine, Blood 0.86 mg/dL (0.60-1.20); Glomerular Filtration Rate >60 (60-); Glucose, Blood 141 mg/dL (70-99); Potassium, Blood 4.7 mmol/L (3.5-5.5); Sodium, Blood 140 mmol/L (136-145)
--- NOTE | 2021-01-06 18:05 | NUR ---
SHIFT SUMMARY PATIENT DENIES PAIN, NAUSEA, AND SHORTNESS OF BREATH. PATIENT TITRATED TO 3L N/C AND MAINTAINING SATURATIONS ABOVE 92%. PATIENT EATING AND DRINKING WELL. PATIENT SBA TO THE BATHROOM. PATIENT PLEASANT AND COOPERATIVE WITH CARE. DR. LUONG TALKED WITH PATIENT ABOUT POSSIBLE DISCHARGE TOMORROW, 01/07.
--- NOTE | 2021-01-07 05:23 | NUR ---
DRILL OPERATOR AUTOMATIC SUMMARY PT A/O X4 WITH FORGETFULNESS. CONTINUES TO BE ON 9L VIA OXYMIZER SATTING IN THE LOW 90'S. USES CALL LIGHT APPROPRIATELY. DENIES PAIN. NO ACUTE CHANGES. CALL LIGHT WITHIN REACH, WILL CONTINUE TO MONITOR.
--- NOTE | 2021-01-07 11:08 | NUR ---
HOME O2 EVALUATION Sats at rest was 86% Patient required 2L to maintain 91% at rest. Desats to 84% with activity on RA. Patient required 3L with activity to maintain 91%.
[2021-01-07] MEDS ORDERED: DEXA6 PO (11:28)
[2021-01-07] MEDS ORDERED: XARELTO20 MG PO (11:28)
--- NOTE | 2021-01-07 15:02 | NUR ---
DISCHARGE SUMMARY PT DC'D @ APPROX 1400 VIA WHEELCHAIR BY LD TEACHER TO PRIVATE VEHICLE. DISCHARGE PAPERWORK REVIEWED c PT, MEDS FAXED TO PREFERRED PHARMACY. PT STATES HE HAS ALL OF HIS BELONGINGS. IV REMOVED AND SITE APPEARED WNL.
== END 2021-01-07 14:04 | disposition home or self-care (01) | DRG 177 ==
LOC: ER 08:44 → ERHOLD 11:31 → MEDS 11:31 → ENPENDDIS 01-07 10:35 → MEDS 01-07 14:04
PROVIDERS: Emergency Medicine; Internal Medicine; Nurse Practitioner Acute Care; ADMIT Internal Medicine
PROC: 8E0ZXY6 Isolation (ICD-10-PCS; principal; 2021-01-05)
PROC: 3E0333Z Introduction of Anti-inflammatory into Peripheral Vein, Percutaneous Approach (ICD-10-PCS; 2021-01-05)
PROC: XW033E5 Introduction of Remdesivir Anti-infective into Peripheral Vein, Percutaneous Approach, New Technology Group 5 (ICD-10-PCS; 2021-01-05)
DX: U07.1 COVID-19 (principal); J96.01 Acute respiratory failure with hypoxia; J12.82 Pneumonia due to coronavirus disease 2019; G92 Toxic encephalopathy; F32.9 Major depressive disorder, single episode, unspecified; I10 Essential (primary) hypertension; N40.0 Benign prostatic hyperplasia without lower urinary tract symptoms; K21.9 Gastro-esophageal reflux disease without esophagitis; R77.8 Other specified abnormalities of plasma proteins; E78.5 Hyperlipidemia, unspecified; D69.59 Other secondary thrombocytopenia; F43.10 Post-traumatic stress disorder, unspecified; I25.10 Atherosclerotic heart disease of native coronary artery without angina pectoris; M10.9 Gout, unspecified; Z95.5 Presence of coronary angioplasty implant and graft; Z98.890 Other specified postprocedural states; Z91.013 Allergy to seafood; Z88.8 Allergy status to other drugs, medicaments and biological substances; Z79.82 Long term (current) use of aspirin; Z79.899 Other long term (current) drug therapy
CPT/HCPCS: 36415; 71045; 80048; 80053; 82803; 83735; 83880; 84145; 84484; 85025; 86140; 93005; 93010; 96374; 99285-25; A9270; J1100; J1650; U0004

== ENCOUNTER 2021-12-13 05:59 | Day surgery (SDC) | payer OTHER ==
[~2021-12-13] VITALS: Ht 177.8 cm; Wt 109.6 kg
[~2021-12-13 05:59] MED LIST changes: +ASPI81CH PO; +DEXA4 PO; +DEXA6 PO; +DIVA500EC PO; +DOCU100 PO; +LISI5 PO; +MIRALAX17 GM PO; +TAMS.4ER PO; +Vitamin D1000 UNI1 PO; +XARELTO20 MG PO
--- NOTE | 2021-12-13 12:03 | NUR ---
Patient up to Ambulate independently. Gait steady. Discharge instructions reviewed with patient. Patient verbalizes understanding. Copy given to patient to take home. Patient States Post-Procedure ride home has been arranged. Discharged via wheelchair to private car for ride home.
== END 2021-12-13 23:43 | disposition home or self-care (01) ==
LOC: ORSCMMR 05:59 → ORD 07:30 → ORSCMMR 23:43
PROVIDERS: Surgery
PROC: BF031ZZ Plain Radiography of Gallbladder and Bile Ducts using Low Osmolar Contrast (ICD-10-PCS; principal; 2021-12-13 07:30)
PROC: 0FT44ZZ Resection of Gallbladder, Percutaneous Endoscopic Approach (ICD-10-PCS; principal; 2021-12-13 07:30)
DX: K80.10 Calculus of gallbladder with chronic cholecystitis without obstruction (principal); I10 Essential (primary) hypertension; I25.10 Atherosclerotic heart disease of native coronary artery without angina pectoris; Z87.891 Personal history of nicotine dependence; K21.9 Gastro-esophageal reflux disease without esophagitis; R73.03 Prediabetes; F03.90 Unspecified dementia, unspecified severity, without behavioral disturbance, psychotic disturbance, mood disturbance, and anxiety; E66.9 Obesity, unspecified; Z68.34 Body mass index [BMI] 34.0-34.9, adult; M10.9 Gout, unspecified; F43.10 Post-traumatic stress disorder, unspecified; Z79.899 Other long term (current) drug therapy; Z79.02 Long term (current) use of antithrombotics/antiplatelets
CPT/HCPCS: 74300; 88304; A9270; C1729; J0330; J0690; J1100; J1885; J2405; J2550; J2704; J2795; J3010; J7120

== ENCOUNTER 2021-12-22 23:07 | Inpatient (IN) | payer OTHER ==
[~2021-12-22] VITALS: Ht 177.8 cm; Wt 111.1 kg
[2021-12-23 00:58] LABS: BASOPHILS ABSOLUTE AUTO 0.04 K/mm3 (0.00-0.23); BASOPHILS PERCENT AUTO 0 % (0-2); EOSINOPHILS ABSOLUTE AUTO 0.23 K/mm3 (0.00-0.68); EOSINOPHILS PERCENT AUTO 2 % (0-6); Hematocrit 31.1 % (37.0-53.0); Hemoglobin 9.7 g/dL (13.5-17.5); IMMATURE GRAN ABSOLUTE AUTO 0.16 K/mm3 (0.00-0.10); IMMATURE GRAN PERCENT AUTO 2 % (0-1); LYMPHOCYTES ABSOLUTE AUTO 1.13 K/mm3 (0.84-5.20); LYMPHOCYTES PERCENT AUTO 11 % (21-46); MONOCYTES ABSOLUTE AUTO 1.12 K/mm3 (0.16-1.47); MONOCYTES PERCENT AUTO 11 % (4-13); Mean Corpuscular HGB Conc 31.2 g/dL (31.5-36.5); Mean Corpuscular Volume 93 fL (80-100); NEUTROPHILS ABSOLUTE AUTO 7.58 K/mm3 (1.96-9.15); NEUTROPHILS PERCENT AUTO 74 % (41-73); Platelet Count 299 K/mm3 (150-400); RDW Coefficient Variation 14.6 % (11.7-14.2); RDW Standard Deviation 49.3 fL (35.1-46.3); Red Blood Cell Count 3.34 M/mm3 (4.30-5.90); White Blood Cell Count 10.26 K/mm3 (4.00-11.30)
[2021-12-23 01:13] LABS: Prothrombin Time Results 10.5 Sec (9.7-11.5)
[2021-12-23 01:14] LABS: Albumin/Globulin Ratio 0.9 (0.8-1.8); Bilirubin, Total 1.1 mg/dL (0.1-1.0); Bun/Creatinine Ratio 20.8 (12.0-20.0); Calcium, Blood 8.4 mg/dL (8.5-10.1); Creatinine, Blood 0.82 mg/dL (0.60-1.20); Globulin, Blood 3.5 g/dL (2.2-4.0); Magnesium, Blood 2.2 mg/dL (1.6-2.4); Total Protein, Blood 6.5 g/dL (6.4-8.2)
[2021-12-23 01:24] LABS: Influenza A, PCR NEGATIVE (NEGATIVE); Influenza B, PCR NEGATIVE (NEGATIVE); Resp Syncytial Virus, PCR NEGATIVE (NEGATIVE); SARS-Cov-2 (COVID-19) PCR, MMC NEGATIVE (NEGATIVE)
[2021-12-23 04:13] LABS: Hematocrit 30.7 % (37.0-53.0); Hemoglobin 9.7 g/dL (13.5-17.5); Mean Corpuscular HGB 29.3 pg (26.0-34.0); Mean Corpuscular HGB Conc 31.6 g/dL (31.5-36.5); Mean Corpuscular Volume 93 fL (80-100); Mean Platelet Volume 10.1 fL (9.1-12.4); Platelet Count 316 K/mm3 (150-400); RDW Coefficient Variation 14.6 % (11.7-14.2); RDW Standard Deviation 49.1 fL (35.1-46.3); Red Blood Cell Count 3.31 M/mm3 (4.30-5.90); White Blood Cell Count 11.31 K/mm3 (4.00-11.30)
--- NOTE | 2021-12-23 13:14 | NUR ---
ASSUMED CARE OF PATIENT. PATIENT RESTING IN BED AT THIS TIME, DENIES PAIN, DENIES ANY NEEDS. CALL LIGHT IN REACH.
[2021-12-23 16:10] LABS: Hematocrit 29.5 % (37.0-53.0); Hemoglobin 9.3 g/dL (13.5-17.5)
--- NOTE | 2021-12-23 17:34 | NUR ---
NO ACUTE CHANGES SINCE ASSUMPTION OF CARE. PATIENT UP TO BR SBA. TOLERATING REGULAR DIET. DENIES N/V. MINIMAL ABDOMINAL PAIN MANAGED PER EMAR. CALLS APPROPRIATELY, WILL REPORT TO ONCOMING RN.
--- NOTE | 2021-12-24 04:19 | NUR ---
ASSUMED CARE OF PT AT 1900 HRS. NO ACUTE CHANGES THIS SHIFT. PT IS A&OX4, SBA TO BR AND IS ABLE TO MAKE NEEDS KNOWN. PT TOLERATING REG DIET, NO NAUSEA REPORTED. PAIN IS WELL CONTROLLED WITH PERCOCET 1 TAB. PT SLEEPS 4+ HOURS THIS SHIFT. WILL CONTINUE TO MONITOR AND GIVE HANDOFF REPORT TO DAYSHIFT RN.
[2021-12-24 04:32] LABS: BASOPHILS ABSOLUTE AUTO 0.03 K/mm3 (0.00-0.23); BASOPHILS PERCENT AUTO 0 % (0-2); EOSINOPHILS ABSOLUTE AUTO 0.39 K/mm3 (0.00-0.68); EOSINOPHILS PERCENT AUTO 5 % (0-6); Hematocrit 29.4 % (37.0-53.0); Hemoglobin 9.2 g/dL (13.5-17.5); IMMATURE GRAN ABSOLUTE AUTO 0.16 K/mm3 (0.00-0.10); IMMATURE GRAN PERCENT AUTO 2 % (0-1); LYMPHOCYTES ABSOLUTE AUTO 0.88 K/mm3 (0.84-5.20); LYMPHOCYTES PERCENT AUTO 11 % (21-46); MONOCYTES ABSOLUTE AUTO 0.83 K/mm3 (0.16-1.47); MONOCYTES PERCENT AUTO 10 % (4-13); Mean Corpuscular HGB Conc 31.3 g/dL (31.5-36.5); Mean Corpuscular Volume 93 fL (80-100); Mean Platelet Volume 9.8 fL (9.1-12.4); NEUTROPHILS ABSOLUTE AUTO 5.91 K/mm3 (1.96-9.15); NEUTROPHILS PERCENT AUTO 72 % (41-73); Platelet Count 268 K/mm3 (150-400); RDW Coefficient Variation 14.5 % (11.7-14.2); RDW Standard Deviation 48.8 fL (35.1-46.3); Red Blood Cell Count 3.17 M/mm3 (4.30-5.90)
[2021-12-24 04:55] LABS: Magnesium, Blood 2.2 mg/dL (1.6-2.4)
[2021-12-24 04:58] LABS: Albumin, Blood 2.7 g/dL (3.4-5.0); Albumin/Globulin Ratio 0.9 (0.8-1.8); Bilirubin, Total 1.2 mg/dL (0.1-1.0); C-REACTIVE PROTEIN, EXT RANGE 6.79 mg/dL (0.000-0.300); Calcium, Blood 8.3 mg/dL (8.5-10.1); Creatinine, Blood 0.93 mg/dL (0.60-1.20); Phosphorus, Blood 3.7 mg/dL (2.5-4.9); Potassium, Blood 4.2 mmol/L (3.5-5.5); Total Protein, Blood 5.7 g/dL (6.4-8.2)
[2021-12-24] MEDS ORDERED: ACET325 PO (10:18)
[2021-12-24] MEDS ORDERED: ONDA4 PO (10:23)
[2021-12-24] MEDS ORDERED: OXYACE7.5T PO (10:27)
[2021-12-24] MEDS ORDERED: AMOCLA500 PO (10:28)
[2021-12-24] MEDS ORDERED: VISBIOME 112.51 EACH PO (10:28)
--- NOTE | 2021-12-24 11:34 | NUR ---
DISCHARGE PT PROVIDED WITH WRITTEN AND VERBAL DISCHARGE INSTRUCTIONS, PT REPORTED UNDERSTANDING. PT EDUCATED TO FOLLOW-UP WITH PCP WITHIN 1 WEEK REGARDING IRON SUPPLEMENTS, AND TO F/U WITH SURGERY WITHIN 2 WEEKS. PAIN MANAGED AT TIME OF DISCHARGE. PT ABLE TO AMBULATE, TOLERATING PO. ALL GOALS MET PRIOR TO DISCHARGE. PT ASSISTED OUT IN A W/C AT APPROXIMATELY 1125.
== END 2021-12-24 11:22 | disposition home or self-care (01) | DRG 871 ==
LOC: ER 23:07 → SURS 12-23 04:52
PROVIDERS: Family Medicine; Student in an Organized Health Care Education/Training Program; ADMIT Internal Medicine
DX: A41.9 Sepsis, unspecified organism (principal); K65.1 Peritoneal abscess; K91.870 Postprocedural hematoma of a digestive system organ or structure following a digestive system procedure; I50.32 Chronic diastolic (congestive) heart failure; D64.9 Anemia, unspecified; I25.10 Atherosclerotic heart disease of native coronary artery without angina pectoris; F32.A Depression, unspecified; I11.0 Hypertensive heart disease with heart failure; F43.10 Post-traumatic stress disorder, unspecified; N40.0 Benign prostatic hyperplasia without lower urinary tract symptoms; M10.9 Gout, unspecified; Z20.822 Contact with and (suspected) exposure to COVID-19; Z88.5 Allergy status to narcotic agent; Z98.890 Other specified postprocedural states; Z90.49 Acquired absence of other specified parts of digestive tract; Z95.5 Presence of coronary angioplasty implant and graft; Z88.8 Allergy status to other drugs, medicaments and biological substances; Z91.013 Allergy to seafood; Z91.041 Radiographic dye allergy status; Z79.899 Other long term (current) drug therapy; Z79.82 Long term (current) use of aspirin; Z79.811 Long term (current) use of aromatase inhibitors; Z79.02 Long term (current) use of antithrombotics/antiplatelets
CPT/HCPCS: 0241U; 36415; 71046; 74177; 80053; 83735; 83880; 84100; 84145; 84484; 85014; 85018; 85025; 85027; 85610; 85730; 86140; 87040; 93005; 93010; 96374; 96375; 99285-25; A9270; J0696; J2270; J2543; Q9967

== ENCOUNTER 2022-01-19 22:15 | Emergency (ER) | payer OTHER ==
[~2022-01-19] VITALS: Ht 177.8 cm; Wt 111.1 kg
[~2022-01-19 22:15] MED LIST changes: +ACET325 PO; +AMOCLA500 PO; +ONDA4 PO; +OXYACE7.5T PO; +VISBIOME 112.51 EACH PO
[2022-01-19 23:17] LABS: BASOPHILS ABSOLUTE AUTO 0.03 K/mm3 (0.00-0.23); BASOPHILS PERCENT AUTO 0 % (0-2); EOSINOPHILS ABSOLUTE AUTO 0.22 K/mm3 (0.00-0.68); EOSINOPHILS PERCENT AUTO 2 % (0-6); Hematocrit 39.2 % (37.0-53.0); Hemoglobin 12.4 g/dL (13.5-17.5); IMMATURE GRAN ABSOLUTE AUTO 0.05 K/mm3 (0.00-0.10); IMMATURE GRAN PERCENT AUTO 1 % (0-1); LYMPHOCYTES PERCENT AUTO 14 % (21-46); MONOCYTES ABSOLUTE AUTO 0.96 K/mm3 (0.16-1.47); MONOCYTES PERCENT AUTO 10 % (4-13); Mean Corpuscular HGB 28.5 pg (26.0-34.0); Mean Corpuscular HGB Conc 31.6 g/dL (31.5-36.5); Mean Corpuscular Volume 90 fL (80-100); Mean Platelet Volume 10.3 fL (9.1-12.4); NEUTROPHILS ABSOLUTE AUTO 7.24 K/mm3 (1.96-9.15); NEUTROPHILS PERCENT AUTO 73 % (41-73); Platelet Count 236 K/mm3 (150-400); RDW Coefficient Variation 14.7 % (11.7-14.2); Red Blood Cell Count 4.35 M/mm3 (4.30-5.90)
[2022-01-19 23:42] LABS: Albumin, Blood 3.8 g/dL (3.4-5.0); Albumin/Globulin Ratio 1.2 (0.8-1.8); Bilirubin, Total 0.4 mg/dL (0.1-1.0); Bun/Creatinine Ratio 18.7 (12.0-20.0); Calcium, Blood 9.7 mg/dL (8.5-10.1); Creatinine, Blood 0.96 mg/dL (0.60-1.20); Globulin, Blood 3.2 g/dL (2.2-4.0); Potassium, Blood 4.1 mmol/L (3.5-5.5)
[2022-01-20 01:38] LABS: Source, Urine Clean Catch
[2022-01-20 01:44] LABS: Bilirubin, Urine Neg (Neg); Blood, Urine Neg (Neg); Glucose Qualitative, Urine Neg (Neg); Ketones, Urine Neg (Neg); Leukocyte Esterase, Urine Neg (Neg); Nitrite, Urine Neg (Neg); Protein, Urine Neg (Neg); Urobilinogen, Urine NORM (Normal)
[2022-01-20 01:46] LABS: Appearance, Urine Clear (Clear); Color, Urine Yellow (P-Yellow)
[2022-01-20] MEDS ORDERED: PROBIOTIC1 EA13 PO (01:53)
[2022-01-20] MEDS ORDERED: DOC250 PO (01:53)
== END 2022-01-20 02:34 | disposition home or self-care (01) ==
LOC: ER 22:15
PROVIDERS: Emergency Medicine
DX: R10.9 Unspecified abdominal pain (principal); K59.00 Constipation, unspecified; I25.10 Atherosclerotic heart disease of native coronary artery without angina pectoris; I11.0 Hypertensive heart disease with heart failure; I50.9 Heart failure, unspecified; Z91.013 Allergy to seafood; Z88.5 Allergy status to narcotic agent; Z88.8 Allergy status to other drugs, medicaments and biological substances; Z91.048 Other nonmedicinal substance allergy status; Z79.899 Other long term (current) drug therapy; Z79.82 Long term (current) use of aspirin; Z98.890 Other specified postprocedural states
CPT/HCPCS: 36415; 74018; 80053; 81003; 83690; 84484; 85025; 93005; 93010; 99284-25

== ENCOUNTER 2022-02-08 03:00 | Observation (INO) | payer OTHER ==
[~2022-02-08] VITALS: Ht 177.8 cm; Wt 109.1 kg
[~2022-02-08 03:00] MED LIST changes: +AMOCLA875 PO; +DICY20 PO; +DOC250 PO; +PROBIOTIC1 EA13 PO; +ZYRTEC10 M2 PO
[2022-02-08 03:31] LABS: BASOPHILS ABSOLUTE AUTO 0.06 K/mm3 (0.00-0.23); BASOPHILS PERCENT AUTO 1 % (0-2); EOSINOPHILS ABSOLUTE AUTO 0.36 K/mm3 (0.00-0.68); EOSINOPHILS PERCENT AUTO 4 % (0-6); Hematocrit 42.9 % (37.0-53.0); Hemoglobin 13.4 g/dL (13.5-17.5); IMMATURE GRAN ABSOLUTE AUTO 0.05 K/mm3 (0.00-0.10); IMMATURE GRAN PERCENT AUTO 1 % (0-1); LYMPHOCYTES ABSOLUTE AUTO 1.65 K/mm3 (0.84-5.20); LYMPHOCYTES PERCENT AUTO 20 % (21-46); MONOCYTES ABSOLUTE AUTO 0.68 K/mm3 (0.16-1.47); MONOCYTES PERCENT AUTO 8 % (4-13); Mean Corpuscular HGB 28.3 pg (26.0-34.0); Mean Corpuscular HGB Conc 31.2 g/dL (31.5-36.5); Mean Corpuscular Volume 91 fL (80-100); Mean Platelet Volume 10.3 fL (9.1-12.4); NEUTROPHILS ABSOLUTE AUTO 5.36 K/mm3 (1.96-9.15); NEUTROPHILS PERCENT AUTO 66 % (41-73); Platelet Count 299 K/mm3 (150-400); RDW Coefficient Variation 15.1 % (11.7-14.2); RDW Standard Deviation 50.5 fL (35.1-46.3); Red Blood Cell Count 4.73 M/mm3 (4.30-5.90); White Blood Cell Count 8.16 K/mm3 (4.00-11.30)
[2022-02-08 03:48] LABS: Albumin, Blood 3.5 g/dL (3.4-5.0); Albumin/Globulin Ratio 1.1 (0.8-1.8); Bilirubin, Total 0.5 mg/dL (0.1-1.0); Bun/Creatinine Ratio 22.1 (12.0-20.0); Calcium, Blood 9.1 mg/dL (8.5-10.1); Creatinine, Blood 0.86 mg/dL (0.60-1.20); Globulin, Blood 3.3 g/dL (2.2-4.0); Potassium, Blood 3.9 mmol/L (3.5-5.5); Total Protein, Blood 6.8 g/dL (6.4-8.2)
[2022-02-08 04:15] LABS: Influenza A, PCR NEGATIVE (NEGATIVE); Influenza B, PCR NEGATIVE (NEGATIVE); Resp Syncytial Virus, PCR NEGATIVE (NEGATIVE); SARS-Cov-2 (COVID-19) PCR, MMC NEGATIVE (NEGATIVE)
[2022-02-08 06:52] LABS: CHOL/HDL RATIO 2.8; Cholesterol 102 mg/dL (50-200); HDL Cholesterol 36 mg/dL (>39); LDL/HDL RATIO 1.3; Low Density Lipoprotein Chol 47 mg/dL (0-110); Triglycerides 97 mg/dL (30-160); Very Low Density Lipoprot Chol 19 mg/dL (6-32)
--- NOTE | 2022-02-08 12:26 | NUR ---
PT ADMITTED TO ROOM 355 FROM ED 1113- DENIES CHEST PAIN CURRENTLY. DR BRAR CAME TO BEDSIDE 1200. PT TOLERATED LUNCH 1215. ORIENTED TO ROOM SET UP AND CALL LIGHT.
--- NOTE | 2022-02-08 17:28 | NUR ---
SUMMARY- PT A/O X4, SBA STEADY ON FEET. PLAN FOR THE STRESS TEST TOMORROW AM, NPO AFTER MN AND NO CAFFEINE OF ANY KIND AFTER MN. PT HAD LUNCH WITH DECAF COFFEE, WHICH DELAYED THE PROCEDURE. PT HAS DENIED ANY CHEST PAIN. VSS, TELE SB 50'S. VOIDING IN THE BATHROOM INDEPENDANT. BROUGHT PT DINNER AND WILL BE BACK IN THE AM
[2022-02-09 04:49] LABS: Hematocrit 42.3 % (37.0-53.0); Hemoglobin 13.4 g/dL (13.5-17.5); Mean Corpuscular HGB 28.5 pg (26.0-34.0); Mean Corpuscular HGB Conc 31.7 g/dL (31.5-36.5); Mean Corpuscular Volume 90 fL (80-100); Mean Platelet Volume 10.5 fL (9.1-12.4); Platelet Count 257 K/mm3 (150-400); RDW Standard Deviation 49.8 fL (35.1-46.3); Red Blood Cell Count 4.71 M/mm3 (4.30-5.90); White Blood Cell Count 9.38 K/mm3 (4.00-11.30)
[2022-02-09 05:21] LABS: Albumin, Blood 3.1 g/dL (3.4-5.0); Bilirubin, Total 0.6 mg/dL (0.1-1.0); Bun/Creatinine Ratio 19.7 (12.0-20.0); Calcium, Blood 9.1 mg/dL (8.5-10.1); Creatinine, Blood 0.81 mg/dL (0.60-1.20); Potassium, Blood 4.1 mmol/L (3.5-5.5); Total Protein, Blood 6.1 g/dL (6.4-8.2)
--- NOTE | 2022-02-09 07:08 | NUR ---
NOC SHIFT SUMMARY PT AAOX4. AT [place] AND INDEPENDENT IN ROOM. STRESS TEST SCHEDULED FOR THIS AM. NO C/O CP OVERNIGHT. NO ISSUES NOTED
[2022-02-09] MEDS ORDERED: AZIT250 PO (14:31)
--- NOTE | 2022-02-09 15:52 | NUR ---
LATE ENTRY/DC HOME WRITTEN & VERBAL DC INSTRUCTIONS GIVEN TO PT WITH PRESENT, BOTH VERBALIZED GOOD UNDERSTANDING. ALL QUESTIONS ANSWERED. NEW MED SCRIPTS FAXED TO [facility] PER PT REQUEST. PIV DC'D WITH CATH TIP INTACT, NO REDNESS OR SWELLING NOTED. PT DC'D VIA W/C WITH ALL PERSONAL BELONGINGS TO PRIVATE VEHICLE, ACCOMPANIED.
== END 2022-02-09 16:06 | disposition home or self-care (01) ==
LOC: ER 03:00 → MEDS 03:01
PROVIDERS: Internal Medicine; Student in an Organized Health Care Education/Training Program; ADMIT Family Medicine
DX: R07.9 Chest pain, unspecified (principal); R05.9 Cough, unspecified; I25.10 Atherosclerotic heart disease of native coronary artery without angina pectoris; I11.0 Hypertensive heart disease with heart failure; I50.32 Chronic diastolic (congestive) heart failure; R00.1 Bradycardia, unspecified; R79.1 Abnormal coagulation profile; F32.A Depression, unspecified; F43.10 Post-traumatic stress disorder, unspecified; M10.9 Gout, unspecified; N40.0 Benign prostatic hyperplasia without lower urinary tract symptoms; Z79.02 Long term (current) use of antithrombotics/antiplatelets; Z79.82 Long term (current) use of aspirin; Z88.8 Allergy status to other drugs, medicaments and biological substances; Z88.5 Allergy status to narcotic agent; Z91.013 Allergy to seafood; Z95.5 Presence of coronary angioplasty implant and graft; Z20.822 Contact with and (suspected) exposure to COVID-19; Z66 Do not resuscitate
CPT/HCPCS: 0241U; 36415; 71045; 71260; 78452; 80053; 80061; 83880; 84145; 84484; 85025; 85027; 85379; 85651; 93005; 93010; 93017; 96374; 96375; 96376; 99285-25; A9270; A9500; G0378; J0696; J0706; J1885; J2785; Q9967

== ENCOUNTER 2022-02-26 16:43 | Emergency (ER) | payer OTHER ==
[~2022-02-26] VITALS: Ht 177.8 cm; Wt 106.6 kg
[~2022-02-26 16:43] MED LIST changes: +AZIT250 PO
[2022-02-26] MEDS ORDERED: CLOP75 PO (17:03)
== END 2022-02-26 17:08 | disposition home or self-care (01) ==
LOC: ER 16:43
DX: Z76.0 Encounter for issue of repeat prescription (principal); R07.9 Chest pain, unspecified; I11.0 Hypertensive heart disease with heart failure; I50.9 Heart failure, unspecified; N40.0 Benign prostatic hyperplasia without lower urinary tract symptoms; M10.9 Gout, unspecified; I25.10 Atherosclerotic heart disease of native coronary artery without angina pectoris; Z79.02 Long term (current) use of antithrombotics/antiplatelets; Z91.013 Allergy to seafood; Z91.041 Radiographic dye allergy status; Z88.5 Allergy status to narcotic agent; Z88.8 Allergy status to other drugs, medicaments and biological substances; Z79.899 Other long term (current) drug therapy; Z79.82 Long term (current) use of aspirin; Z79.01 Long term (current) use of anticoagulants
CPT/HCPCS: 99281

== ENCOUNTER 2023-08-28 12:55 | Emergency (ER) | payer OTHER ==
[~2023-08-28] VITALS: Ht 177.8 cm; Wt 111.1 kg
[2023-08-28] MEDS ORDERED: CARBIDOPA-LEVO1 EA15 (14:07)
[2023-08-28] MEDS ORDERED: THERA-D2000 UNIT PO (14:09)
[2023-08-28] MEDS ORDERED: OMEP20ER PO (14:10)
[2023-08-28] MEDS ORDERED: NAPR500 PO (14:10)
[2023-08-28] MEDS ORDERED: TAMS.4ER PO (14:11)
[2023-08-28 15:00] LABS: BASOPHILS ABSOLUTE AUTO 0.07 K/mm3 (0.00-0.23); BASOPHILS PERCENT AUTO 1 % (0-2); EOSINOPHILS ABSOLUTE AUTO 0.12 K/mm3 (0.00-0.68); EOSINOPHILS PERCENT AUTO 1 % (0-6); Hematocrit 47.4 % (37.0-53.0); Hemoglobin 15.7 g/dL (13.5-17.5); IMMATURE GRAN ABSOLUTE AUTO 0.11 K/mm3 (0.00-0.10); IMMATURE GRAN PERCENT AUTO 1 % (0-1); LYMPHOCYTES ABSOLUTE AUTO 1.21 K/mm3 (0.84-5.20); LYMPHOCYTES PERCENT AUTO 9 % (21-46); MONOCYTES ABSOLUTE AUTO 1.14 K/mm3 (0.16-1.47); MONOCYTES PERCENT AUTO 8 % (4-13); Mean Corpuscular HGB Conc 33.1 g/dL (31.5-36.5); Mean Corpuscular Volume 91 fL (80-100); Mean Platelet Volume 11.2 fL (9.1-12.4); NEUTROPHILS ABSOLUTE AUTO 11.29 K/mm3 (1.96-9.15); NEUTROPHILS PERCENT AUTO 81 % (41-73); Platelet Count 262 K/mm3 (150-400); RDW Coefficient Variation 13.5 % (11.7-14.2); RDW Standard Deviation 44.7 fL (35.1-46.3); Red Blood Cell Count 5.24 M/mm3 (4.30-5.90); White Blood Cell Count 13.94 K/mm3 (4.00-11.30)
[2023-08-28 15:17] LABS: Albumin, Blood 3.6 g/dL (3.4-5.0); Albumin/Globulin Ratio 1.1 (0.8-1.8); Bilirubin, Total 1.2 mg/dL (0.1-1.0); Bun/Creatinine Ratio 21.4 (12.0-20.0); Calcium, Blood 9.3 mg/dL (8.5-10.1); Creatinine, Blood 1.03 mg/dL (0.60-1.20); Globulin, Blood 3.2 g/dL (2.2-4.0); Potassium, Blood 4.3 mmol/L (3.5-5.5); Total Protein, Blood 6.8 g/dL (6.4-8.2)
[2023-08-28 19:00] VITALS: BP 134/85
== END 2023-08-28 19:00 | disposition home or self-care (01) ==
LOC: ER 12:55
PROVIDERS: Emergency Medicine
DX: R07.9 Chest pain, unspecified (principal); I25.10 Atherosclerotic heart disease of native coronary artery without angina pectoris; I11.0 Hypertensive heart disease with heart failure; I50.9 Heart failure, unspecified; Z91.013 Allergy to seafood; Z88.8 Allergy status to other drugs, medicaments and biological substances; Z88.5 Allergy status to narcotic agent; Z91.048 Other nonmedicinal substance allergy status; Z79.899 Other long term (current) drug therapy
CPT/HCPCS: 71045; 80053; 83880; 84484; 85025; 93005; 93010; 99285-25

== ENCOUNTER 2024-09-02 16:52 | Emergency (ER) | payer OTHER ==
[~2024-09-02] VITALS: Ht 180.3 cm; Wt 90.7 kg
[~2024-09-02 16:52] MED LIST changes: +CARBIDOPA-LEVO1 EA15; +NAPR500 PO; +OMEP20ER PO; +THERA-D2000 UNIT PO
[2024-09-02 17:55] LABS: BASOPHILS ABSOLUTE AUTO 0.04 K/mm3 (0.00-0.23); BASOPHILS PERCENT AUTO 0 % (0-2); EOSINOPHILS ABSOLUTE AUTO 0.09 K/mm3 (0.00-0.68); EOSINOPHILS PERCENT AUTO 1 % (0-6); Hemoglobin 13.5 g/dL (13.5-17.5); IMMATURE GRAN ABSOLUTE AUTO 0.07 K/mm3 (0.00-0.10); IMMATURE GRAN PERCENT AUTO 1 % (0-1); LYMPHOCYTES ABSOLUTE AUTO 1.04 K/mm3 (0.84-5.20); LYMPHOCYTES PERCENT AUTO 10 % (21-46); MONOCYTES ABSOLUTE AUTO 0.94 K/mm3 (0.16-1.47); MONOCYTES PERCENT AUTO 9 % (4-13); Mean Corpuscular HGB 30.8 pg (26.0-34.0); Mean Corpuscular HGB Conc 33.8 g/dL (31.5-36.5); Mean Corpuscular Volume 91 fL (80-100); Mean Platelet Volume 10.4 fL (9.1-12.4); NEUTROPHILS ABSOLUTE AUTO 8.17 K/mm3 (1.96-9.15); NEUTROPHILS PERCENT AUTO 79 % (41-73); Platelet Count 214 K/mm3 (150-400); RDW Coefficient Variation 13.3 % (11.7-14.2); Red Blood Cell Count 4.39 M/mm3 (4.30-5.90); White Blood Cell Count 10.35 K/mm3 (4.00-11.30)
[2024-09-02 18:24] LABS: Albumin, Blood 3.8 g/dL (3.4-5.0); Albumin/Globulin Ratio 1.3 (0.8-1.8); Bilirubin, Total 0.4 mg/dL (0.1-1.0); Bun/Creatinine Ratio 16.2 (12.0-20.0); Calcium, Blood 8.7 mg/dL (8.5-10.1); Creatinine, Blood 1.11 mg/dL (0.60-1.20); Globulin, Blood 2.9 g/dL (2.2-4.0); Potassium, Blood 3.8 mmol/L (3.5-5.5); Total Protein, Blood 6.7 g/dL (6.4-8.2)
[2024-09-02] MEDS ORDERED: Amoxicillin/Clavulanate K 875 MG Tab PO ONE (19:15)
[2024-09-02] MEDS ORDERED: AMOCLA875 PO (19:18)
[2024-09-02 20:30] VITALS: BP 150/79
== END 2024-09-02 20:37 | disposition home or self-care (01) ==
LOC: ER 16:52
PROVIDERS: Student in an Organized Health Care Education/Training Program
DX: S02.2XXA Fracture of nasal bones, initial encounter for closed fracture (principal); I25.2 Old myocardial infarction; G20.A1 Parkinson's disease without dyskinesia, without mention of fluctuations; F02.80 Dementia in other diseases classified elsewhere, unspecified severity, without behavioral disturbance, psychotic disturbance, mood disturbance, and anxiety; N40.0 Benign prostatic hyperplasia without lower urinary tract symptoms; I11.0 Hypertensive heart disease with heart failure; I50.9 Heart failure, unspecified; I25.10 Atherosclerotic heart disease of native coronary artery without angina pectoris; W01.0XXA Fall on same level from slipping, tripping and stumbling without subsequent striking against object, initial encounter; Z91.013 Allergy to seafood; Z88.5 Allergy status to narcotic agent; Z88.8 Allergy status to other drugs, medicaments and biological substances; Z79.899 Other long term (current) drug therapy; Z95.5 Presence of coronary angioplasty implant and graft
CPT/HCPCS: 70450; 80053; 85025; 99284-25; A9270

== ENCOUNTER 2024-09-02 23:23 | Emergency (ER) | payer OTHER ==
[~2024-09-02] VITALS: Ht 170.2 cm; Wt 81.7 kg
[2024-09-02 23:25] VITALS: BP 124/99
== END 2024-09-03 04:09 | disposition home or self-care (01) ==
LOC: ER 23:23
DX: R04.0 Epistaxis (principal); Z91.013 Allergy to seafood; Z91.041 Radiographic dye allergy status; Z88.5 Allergy status to narcotic agent; Z79.899 Other long term (current) drug therapy; I11.0 Hypertensive heart disease with heart failure; I50.9 Heart failure, unspecified
CPT/HCPCS: 99283

== ENCOUNTER 2024-11-22 21:37 | Emergency (ER) | payer OTHER ==
[~2024-11-22] VITALS: Ht 180.3 cm; Wt 106.6 kg
[2024-11-22] MEDS ORDERED: Lidocaine 4% 1 Patch TOP ONE (23:55)
[2024-11-22] MEDS ORDERED: LIDO700A20 TOP (23:59)
[2024-11-23 00:56] VITALS: BP 169/73
== END 2024-11-23 00:56 | disposition home or self-care (01) ==
LOC: ER 21:37
DX: S50.312A Abrasion of left elbow, initial encounter (principal); R07.89 Other chest pain; I10 Essential (primary) hypertension; K21.9 Gastro-esophageal reflux disease without esophagitis; Z91.013 Allergy to seafood; Z91.041 Radiographic dye allergy status; Z79.899 Other long term (current) drug therapy; W01.198A Fall on same level from slipping, tripping and stumbling with subsequent striking against other object, initial encounter
CPT/HCPCS: 71046; 99283-25; A9270

== ENCOUNTER 2024-11-24 19:27 | Emergency (ER) | payer OTHER ==
[~2024-11-24] VITALS: Ht 177.8 cm; Wt 104.3 kg
[~2024-11-24 19:27] MED LIST changes: +LIDO700A20 TOP
[2024-11-24 21:45] VITALS: BP 140/74
== END 2024-11-24 22:51 | disposition home or self-care (01) ==
LOC: ER 19:27
DX: S51.012A Laceration without foreign body of left elbow, initial encounter (principal); S50.12XA Contusion of left forearm, initial encounter; S50.11XA Contusion of right forearm, initial encounter; S80.02XA Contusion of left knee, initial encounter; G20.A1 Parkinson's disease without dyskinesia, without mention of fluctuations; F02.80 Dementia in other diseases classified elsewhere, unspecified severity, without behavioral disturbance, psychotic disturbance, mood disturbance, and anxiety; I25.10 Atherosclerotic heart disease of native coronary artery without angina pectoris; I11.0 Hypertensive heart disease with heart failure; I50.9 Heart failure, unspecified; N40.0 Benign prostatic hyperplasia without lower urinary tract symptoms; Z91.013 Allergy to seafood; Z88.8 Allergy status to other drugs, medicaments and biological substances; Z91.041 Radiographic dye allergy status; Z88.5 Allergy status to narcotic agent; Z79.02 Long term (current) use of antithrombotics/antiplatelets; Z79.899 Other long term (current) drug therapy; Z59.89 Other problems related to housing and economic circumstances; W18.30XA Fall on same level, unspecified, initial encounter
CPT/HCPCS: 73080; 73562-LT; 93005; 93010; 99284-25